=== PATIENT | female | born 1970 | race Caucasian/White ===

== ENCOUNTER → 2016-12-17 | Outpatient (CLI) | payer OTHER ==
[~2016-12-17] MED LIST: ALBUAER2 INH; EPP3/2 IM; TYLOTC500 PO
--- NOTE | 2016-12-17 19:40 | DIAGNOSTIC IMAGING REPORT ---
MRI OF THE CERVICAL SPINE WITHOUT IV CONTRAST CLINICAL HISTORY: Cervical radiculopathy. COMPARISON STUDY: Radiographs of the cervical spine dated 02/04/2016. MRI of the cervical spine dated 11/05/2011. TECHNIQUE: MRI of the cervical spine was performed utilizing various T1 and T2-weighted sequences in the axial and sagittal planes. IV contrast was not administered for this examination. FINDINGS: Cervical spine: Vertebral body height and alignment are maintained throughout the cervical spine. The atlantodental articulation appears maintained. There is straightening of the cervical lordosis. The spinous processes appear intact. No destructive bony lesion is seen. Degenerative endplate edema is noted at C5-C6 and C6-C7. Small anterior osteophytes are present in the lower cervical spine. Intervertebral discs: There is degenerative disc desiccation throughout the cervical spine. Moderate loss of height is present at C5-C6 and C6-C7. Spinal cord: The cervical spinal cord is normal in morphology and signal intensity. C2-C3: Unremarkable. C3-C4: A posterior disc osteophyte complex is eccentric to the left. The central canal is widely patent. Uncovertebral and facet arthropathy cause moderate left and minimal right neural foraminal stenosis. C4-C5: A posterior disc osteophyte complex minimally effaces the ventral subarachnoid space. Uncovertebral and facet arthropathy cause [id number] left greater than right neural foraminal stenosis. C5-C6: A posterior disc osteophyte complex eccentric to the left effaces the ventral cord. Uncovertebral and facet arthropathy cause severe left and moderate right neural foraminal stenosis. C6-C7: A posterior disc osteophyte complex abuts the ventral cord. Uncovertebral and facet arthropathy cause severe right greater than left neural foraminal stenosis. C7-T1: Unremarkable. Soft tissues: The prevertebral and paraspinous soft tissues are within normal limits. Brain parenchyma: Partially imaged brain parenchyma at the skull base is within normal limits. IMPRESSION: 1. Cervical spondylosis as detailed above, greatest at C5-C6 and C6-C7. See discussion for detailed [id number] analysis. 2. The cervical spinal cord is normal in morphology and signal intensity. 3. Degenerative disc disease with endplate edema at C5-C6 and C6-C7 as above. Dictated: 12/17/2016 7:30 PM Transcribed: 12/17/2016 7:39 PM Levi Electronically signed by: Lan Shipman M.D. 12/17/2016 7:40 PM Dictated Date/Time: 12/17/2016 7:30 PM
--- NOTE | 2016-12-17 20:15 | DIAGNOSTIC IMAGING REPORT ---
MRI OF THE LUMBAR SPINE WITHOUT IV CONTRAST CLINICAL HISTORY: Chronic low back pain. Right lower extremity radiculopathy. COMPARISON STUDY: Radiographs of the lumbar spine dated 02/04/2016 TECHNIQUE: MRI of the lumbar spine is performed utilizing various T1 and T2-weighted sequences in the axial and sagittal planes. IV contrast was not administered for this examination. Orthopedic hardware degrades assessment of the lower lumbar spine. FINDINGS: Lumbar spine: Vertebral body height and alignment are maintained throughout the lumbar spine. Normal marrow signal intensity is preserved throughout the visualized bony structures. Mild lumbar dextrocurvature centered at L3. The transverse and spinous processes appear intact. No destructive osseous lesion is seen. There is no evidence of spondylolysis. Intervertebral discs: Findings suggest previous discectomy at L4-L5 and L5-S1. Degenerative disc desiccation is seen in the remaining lumbar levels. There is no significant loss of height. Spinal cord: Partially imaged spinal cord is normal in morphology and signal intensity. The conus medullaris terminates at the level of L1. The nerve roots of the cauda equina are normal in morphology. L1-L2: Unremarkable. L2-L3: There is minimal disc bulge of no consequence. The central canal and neural foramina are patent. Mild facet arthropathy is of no consequence. L3-L4: There is broad-based posterior disc bulge with annular fissure, slightly eccentric to the right. In conjunction with hypertrophy of the ligamentum flavum, this contributes to minimal acquired compromise of the central canal with a minimum AP diameter of 8.5 mm. There is bilateral subarticular stenosis. There may be impingement of the exiting right L3 nerve root and the transiting right-sided nerve roots. Facet arthropathy causes mild left neural foraminal stenosis. L4-L5: The central canal and neural foramina are patent. L5-S1: The central canal and neural foramina are patent. Sacrum: Partially imaged sacrum is normal in morphology and signal intensity. Soft tissues: The paraspinous soft tissues are normal in appearance. The partially imaged retroperitoneal structures are grossly normal but incompletely assessed. Cholelithiasis is incidentally noted. IMPRESSION: 1. Lumbosacral spondylosis as detailed above. See discussion for detailed thnie-[id number] analysis. 2. A disc bulge at L4-L5 eccentric to the right may impinge upon the exiting right L3 as well as the transiting right-sided nerve roots. 3. Postoperative change from discectomy is present at L4-L5 and L5-S1. 4. No destructive bony process is seen. 5. Cholelithiasis. Dictated: 12/17/2016 7:40 PM Transcribed: 12/17/2016 8:14 PM LINA_[email or web address] Electronically signed by: Lan Shipman M.D. 12/17/2016 8:15 PM Dictated Date/Time: 12/17/2016 7:40 PM
== END | disposition home or self-care (01) ==
LOC: C.MRI 17:58
PROVIDERS: ATTEND Neurological Surgery
DX: M50.122 Cervical disc disorder at C5-C6 level with radiculopathy (principal); M50.123 Cervical disc disorder at C6-C7 level with radiculopathy; M47.22 Other spondylosis with radiculopathy, cervical region; M47.27 Other spondylosis with radiculopathy, lumbosacral region; M51.16 Intervertebral disc disorders with radiculopathy, lumbar region; K80.20 Calculus of gallbladder without cholecystitis without obstruction; Z98.890 Other specified postprocedural states

== ENCOUNTER 2023-04-16 07:07 | Inpatient (IN) ==
[2023-04-16] MEDS ORDERED: KETOROLAC TROMETHAMINE 15 MG/ML VIAL IV STA (07:43)
[2023-04-16] MEDS ORDERED: SODIUM CHLORIDE 0.9% 1000ML 1,000 ML IV STA (07:43)
[2023-04-16] MEDS ORDERED: ACETAMINOPHEN 1,000 MG/100 ML VIAL IV STA (07:57)
[2023-04-16 07:59] LABS: Hematocrit (blood only) 38.4 % (37.0-47.0); Hemoglobin 12.8 g/dl (12.0-16.0); Mean Corpuscular Hemoglobin 27.4 pg (25.0-34.0); Mean Corpuscular Hgb Conc 33.3 g/dL (32.0-36.0); Mean Corpuscular Volume 82.1 fL (80.0-100.0); Mean Platelet Volume 10.1 fL (9.4-12.4); Platelet Count 325 K/uL (130-400); RDW Coefficient of Variation 14.8 % (11.5-14.5); RDW Standard Deviation 44.2 fL (36.4-46.3); Red Blood Count 4.68 M/uL (4.20-5.40); White Blood Count 23.93 K/ul (4.8-10.8)
[2023-04-16 08:02] LABS: Appearance Urine Clear (Clear); Blood Urine 2+ (Negative); Color Urine Dark Yellow; Epithelial Cell Urine Auto >30 /lpf (0-5); Glucose Urine UA Trace (Negative); Ketones Urine Trace (Negative); Leukocyte Esterase Urine Negative (Negative); Nitrite Urine Negative (Negative); Protein Urine 1+ (Negative); Specific Gravity Urine 1.035 (1.000-1.030); Urobilinogen Urine Negative (Negative); pH Urine 5.5 (4.5-7.5)
[2023-04-16 08:11] LABS: Albumin Globulin Ratio 1.3 (0.9-2); BUN Creatinine Ratio 17.1 (10-20); Bilirubin,Total 0.6 mg/dl (0.2-1.0); Calcium 9.4 mg/dl (8.6-10.3); Creatinine Clr Calc Pharmacy 73.9 ml/min; Est GFR (African American) 103.8 ml/min; Est GFR (Non-African American) 89.6 ml/min; Globulin 3.1 gm/dl (2.5-4.0); Potassium 3.5 mmol/L (3.5-5.1); Total Protein 7.1 gm/dl (6.0-8.3)
[2023-04-16 08:18] LABS: Troponin I High Sensitivity 3.2 pg/ml (0-14)
[2023-04-16 08:22] LABS: Basophils # (auto) 0.05 K/uL (0-0.2); Basophils % (auto) 0.2 %; Eosinophils # (auto) 0.01 K/uL (0-0.50); Immature Granulocytes # (auto) 0.14 K/uL (0.01-0.20); Immature Granulocytes % (auto) 0.6 %; Lymphocytes # (auto) 0.55 K/uL (1.2-3.4); Lymphocytes % (auto) 2.3 %; Monocytes # (auto) 0.91 K/uL (0.11-0.59); Monocytes % (auto) 3.8 %; Neutrophils # (auto) 22.27 K/uL (1.40-6.50); Neutrophils % (auto) 93.1 %
[2023-04-16 08:27] LABS: Bilirubin Urine 1+ (Negative)
--- NOTE | 2023-04-16 08:27 | Emergency Department Note ---
Impression & Plan Perforated viscus, Pneumoperitoneum, Abdominal pain ED Provider Note CHIEF COMPLAINT: Abdominal pain, back pain HISTORY OF PRESENT ILLNESS: This 52-year-old patient presents to the emergency d [facility] via ambulance for evaluation of abdominal pain and back pain. Patient states that symptoms have been ongoing for 2 days. She states the pain significantly worsened overnight and she called the ambulance. She states pain began when she was reaching up to turn off her air conditioner. She states that she felt a popping sensation in her abdomen. Since that time, the pain has been progressively worsening and spreading to her back. She has been taking Tylenol, ibuprofen, and oxycodone without significant improvement. She states she did have a very large bowel movement yesterday which was somewhat unusual for her. No fever. No nausea or vomiting. No dysuria, urinary frequency, urinary hesitancy. No abnormal vaginal bleeding or discharge. No chest pain or shortness of breath. Patient is unable to localize the pain. She notes it is "everywhere". She states she cannot roll or sit due to the severe pain. REVIEW OF SYSTEMS: A 10 system review of systems was performed with positives and pertinent negatives listed in the history of present illness. All other systems were reviewed and are negative. ALLERGIES: Cyclobenzaprine PHYSICAL EXAM: VITALS: Vitals are noted on the nurse's note and reviewed by myself. Vital signs stable. GENERAL: This is a 52-year-old female, in no acute distress, nondiaphoretic, well-developed well-nourished. SKIN: The skin was without rashes, erythema, edema, or bruising. There is no tenting of the skin. Capillary refill less than 2 seconds. HEAD: Normocephalic atraumatic. EARS: External auditory canals clear, tympanic membranes pearly cantor without erythema or effusion bilaterally. EYES: Pupils equal round and reactive to light and accommodation. Conjunctivae without injection, sclerae without icterus. Extraocular movements intact. NOSE: Patent, turbinates without inflammation or discharge. No sinus tenderness. MOUTH: Mucous membranes moist. Tonsils are not enlarged. Pharynx without erythema or exudate. Uvula midline. Airway patent. Tongue does not deviate. NECK: Supple without nuchal rigidity. No lymphadenopathy. No thyromegaly. Cervical spine is nontender. No JVD. HEART: Regular rate and rhythm without murmurs gallops or rubs. LUNGS: Clear to auscultation bilaterally without wheezes, rales or rhonchi. No retractions or accessory muscle use. ABDOMEN: Positive bowel sounds x 4. Abdomen is distended. It is diffusely tender. No specific masses or organomegaly. Mark sign negative. Diffuse guarding. There is CVA tenderness bilaterally MUSCULOSKELETAL: No muscle atrophy, erythema, or edema noted. Full range of motion without joint tenderness in all extremities. Exquisite tenderness to palpation of the entire back normal gait. Strength 5/5 throughout. NEURO: Patient was alert and oriented to person place and time. No focal neurological deficits. EKG: Normal sinus rhythm with a ventricular rate of [address] elevation or depression. No T wave inversion. No previous EKGs available for comparison An order was placed for continuous playground monitor. The monitor showed a normal sinus at a ventricular rate of 87 bpm, per my interpretation. EMERGENCY DEPARTMENT COURSE: The patient was seen and evaluated as above. IV access obtained, labs drawn. Patient was medicated with acetaminophen and IV fluids. CT imaging was performed and reviewed by myself and radiologist as noted. Labs were reviewed. Patient does have a leukocytosis of almost 24,000. No significant anemia or thrombocytopenia. Renal, hepatic function and electrolytes without significant abnormality. Lactic acid 1.3. Troponin negative. Lipase mildly elevated at 101. Urinalysis appears to be contaminated specimen. Patient was medicated with IV morphine and Zofran. COVID-19 testing is negative. Given the pneumoperitoneum and concern for bowel perforation, I did consult with general surgery. General surgery was paged regarding CT findings of pneumoperitoneum and perforated bowel. Called back by OR nurse. Notified surgeon of the case and advised they will call me back when they have completed their current case. The patient was updated and continued to complain of pain. She was medicated with IV Dilaudid. The patient was seen by general surgery. Based on Dr. Balderrama's note, it appears that they will be taking her to the operating room for ex lap. Please see general surgery dictation regarding ongoing management care of this patient Etiologies such as appendicitis, diverticulitis, obstruction, inflammatory bowel disease, renal colic, PUD, biliary pathology, pancreatitis, mesenteric ischemia, aortic pathology, infections, genitourinary, UTI, perforated viscus, as well as others were entertained. I attest that I have personally reviewed the patient's current medication list. Patient was found to have normal blood pressure on screening and does not require follow-up. The chart was completed utilizing [employer] voice recognition software. Grammatical errors, random word insertions, pronoun errors, and incomplete sentences are an occasional consequence of this system due to software limitations, ambient noise, and hardware issues. Any formal questions or concerns about the content, text, or information contained within the body of this dictation should be directly addressed to the provider for clarification. Past Med/Surg History Medical History Chronic low back pain Surgical History H/O lumbosacral spine surgery History of hysterectomy History of repair of anterior cruciate ligament of right knee Social History Smoking Status: Current every day smoker Preferred Language: Portuguese Feels Safe at Home: Yes Allergies Allergies Allergy/AdvReac Type Severity Reaction Status Date / Time bee venom protein (honey bee) Allergy Unknown BREATHING Verified 11/01/19 23:09 DIIFICULTY, SWELLING cyclobenzaprine AdvReac Unknown drops her Verified 11/01/19 23:09 bp Home Meds Home Medications Medication Instructions Recorded Confirmed albuterol sulfate 2.5 mg/3 mL 2.5 mg inhalation UD PRN Shortness 04/22/20 04/16/23 (0.083 %) solution for nebulization Of Breath Or Wheezing epinephrine 0.3 mg/0.3 mL 0.3 ml subcut UD PRN Anaphylaxis 04/22/20 04/16/23 injection, auto-injector Previous Rx's Medication Instructions Recorded oxycodone-acetaminophen 5 mg-325 1 tab PO Q6H PRN pain #14 tabs 04/23/ mg tablet (Percocet) Results & Data (ED) Vital Signs Vital Signs - 24 hr 04/16/23 07:21 04/16/23 07:43 04/16/23 08:16 Temperature 36.9 C Temperature Source Oral Pulse Rate 105 H 95 H 91 H Pulse Rate from SpO2 Sensor Pulse Rhythm Regular Respiratory Rate 16 Respiratory Effort / Characteristics Non-Labored Spontaneous Respiratory Depth Normal Respiratory Pattern Regular Blood Pressure 120/97 Blood Pressure Mean 104 Pulse Oximetry 99 100 Oxygen Delivery Method Room Air Room Air Sepsis Recent Fever Within 48 Hours No Sepsis New/Unexplained Change in Mental Status No Sepsis Action Taken by Nursing No Action Required 04/16/23 08:37 04/16/23 10:00 04/16/23 11:00 Temperature Temperature Source Pulse Rate 95 H 93 H 93 H Pulse Rate from SpO2 Sensor 91 H Pulse Rhythm Respiratory Rate 22 18 18 Respiratory Effort / Characteristics Respiratory Depth Respiratory Pattern Blood Pressure 145/88 H 134/93 98/71 L Blood Pressure Mean 107 106 80 Pulse Oximetry 98 98 97 Oxygen Delivery Method Sepsis Recent Fever Within 48 Hours Sepsis New/Unexplained Change in Mental Status Sepsis Action Taken by Nursing 04/16/23 11:25 04/16/23 11:31 Temperature 36.8 C Temperature Source Oral Pulse Rate 93 H Pulse Rate from SpO2 Sensor Pulse Rhythm Respiratory Rate 18 Respiratory Effort / Characteristics Respiratory Depth Respiratory Pattern Blood Pressure 98/71 L Blood Pressure Mean Pulse Oximetry 97 Oxygen Delivery Method Room Air Sepsis Recent Fever Within 48 Hours Sepsis New/Unexplained Change in Mental Status Sepsis Action Taken by Nursing Laboratory Data 04/16/23 07:20 04/16/23 07:20 Lab Results 04/16/23 04/16/23 04/16/23 Range/Units 07:20 07:20 07:20 WBC 23.93 H (4.8-10.8) K/ul RBC 4.68 (4.20-5.40) M/uL Hgb 12.8 (12.0-16.0) g/dl Hct 38.4 (37.0-47.0) % MCV 82.1 (80.0-100.0) fL MCH 27.4 (25.0-34.0) pg MCHC 33.3 (32.0-36.0) g/dL RDW Std Deviation 44.2 (36.4-46.3) fL RDW Coeff of Elvin 14.8 H (11.5-14.5) % Plt Count 325 (130-400) K/uL MPV 10.1 (9.4-12.4) fL Immature Gran % (Auto) 0.6 % Neut % (Auto) 93.1 % Lymph % (Auto) 2.3 % Pepin % (Auto) 3.8 % Eos % (Auto) 0.0 % Baso % (Auto) 0.2 % Neut # (Auto) 22.27 H (1.40-6.50) K/uL Lymph # (Auto) 0.55 L (1.2-3.4) K/uL Pepin # (Auto) 0.91 H (0.11-0.59) K/uL Eos # (Auto) 0.01 (0-0.50) K/uL Baso # (Auto) 0.05 (0-0.2) K/uL Immature Gran # (Auto) 0.14 (0.01-0.20) K/uL PT 11.1 (9.0-12.0) Seconds INR 1.0 (0.9-1.1) Sodium 138 (136-145) mmol/L Potassium 3.5 (3.5-5.1) mmol/L Chloride 108 H (98-107) mmol/L Carbon Dioxide 24 (21-32) mmol/L Anion Gap 6 (3-11) BUN 13 (6-23) mg/dl Creatinine 0.76 (0.6-1.2) mg/dl Est Cr Clr Drug Dosing 73.9 ml/min Est GFR ( Amer) 103.8 ml/min Est GFR (Non-Af Amer) 89.6 ml/min BUN/Creatinine Ratio 17.1 (10-20) Glucose 143 H (70-99(Fasting)) mg/dl Lactate (0.4-2.0) mmol/L Calcium 9.4 (8.6-10.3) mg/dl Total Bilirubin 0.6 (0.2-1.0) mg/dl AST 11 L (13-39) U/L ALT 11 (7-52) U/L Alkaline Phosphatase 85 (34-104) U/L Troponin I High Sens 3.2 (0-14) pg/ml Total Protein 7.1 (6.0-8.3) gm/dl Albumin 4.0 (3.4-5.0) gm/dl Globulin 3.1 (2.5-4.0) gm/dl Albumin/Globulin Ratio 1.3 (0.9-2) Lipase 101 H (11-82) U/L Urine Color Urine Appearance (Clear) Urine pH (4.5-7.5) Ur Specific [place] (1.000-1.030) Urine Protein (Negative) Urine Glucose (UA) (Negative) Urine Ketones (Negative) Urine Blood (Negative) Urine Nitrite (Negative) Urine Bilirubin (Negative) Urine Urobilinogen (Negative) Ur Leukocyte Esterase (Negative) Urine WBC (Auto) (0-5) /hpf Urine RBC (Auto) (0-4) /hpf U Hyaline Cast (Auto) (0-5) /lpf U Epithel Cells (Auto) (0-5) /lpf Urine Bacteria (Auto) (Negative) Ur Renal Epithelial Cell Granular Casts (0) /lpf WBC Casts (0) /lpf SARS-CoV-2, RNA, NAAT (NEGATIVE) 04/16/23 04/16/23 04/16/23 Range/Units 07:50 09:04 09:33 WBC (4.8-10.8) K/ul RBC (4.20-5.40) M/uL Hgb (12.0-16.0) g/dl Hct (37.0-47.0) % MCV (80.0-100.0) fL MCH (25.0-34.0) pg MCHC (32.0-36.0) g/dL RDW Std Deviation (36.4-46.3) fL RDW Coeff of Elvin (11.5-14.5) % Plt Count (130-400) K/uL MPV (9.4-12.4) fL Immature Gran % (Auto) % Neut % (Auto) % Lymph % (Auto) % Pepin % (Auto) % Eos % (Auto) % Baso % (Auto) % Neut # (Auto) (1.40-6.50) K/uL Lymph # (Auto) (1.2-3.4) K/uL Pepin # (Auto) (0.11-0.59) K/uL Eos # (Auto) (0-0.50) K/uL Baso # (Auto) (0-0.2) K/uL Immature Gran # (Auto) (0.01-0.20) K/uL PT (9.0-12.0) Seconds INR (0.9-1.1) Sodium (136-145) mmol/L Potassium (3.5-5.1) mmol/L Chloride (98-107) mmol/L Carbon Dioxide (21-32) mmol/L Anion Gap (3-11) BUN (6-23) mg/dl Creatinine (0.6-1.2) mg/dl Est Cr Clr Drug Dosing ml/min Est GFR ( Amer) ml/min Est GFR (Non-Af Amer) ml/min BUN/Creatinine Ratio (10-20) Glucose (70-99(Fasting)) mg/dl Lactate 1.3 (0.4-2.0) mmol/L Calcium (8.6-10.3) mg/dl Total Bilirubin (0.2-1.0) mg/dl AST (13-39) U/L ALT (7-52) U/L Alkaline Phosphatase (34-104) U/L Troponin I High Sens (0-14) pg/ml Total Protein (6.0-8.3) gm/dl Albumin (3.4-5.0) gm/dl Globulin (2.5-4.0) gm/dl Albumin/Globulin Ratio (0.9-2) Lipase (11-82) U/L Urine Color Dark Yellow Urine Appearance Clear (Clear) Urine pH 5.5 (4.5-7.5) Ur Specific [place] 1.035 H (1.000-1.030) Urine Protein 1+ H (Negative) Urine Glucose (UA) Trace H (Negative) Urine Ketones Trace H (Negative) Urine Blood 2+ H (Negative) Urine Nitrite Negative (Negative) Urine Bilirubin 1+ H (Negative) Urine Urobilinogen Negative (Negative) Ur Leukocyte Esterase Negative (Negative) Urine WBC (Auto) 5-10 H (0-5) /hpf Urine RBC (Auto) 0-4 (0-4) /hpf U Hyaline Cast (Auto) 1-5 (0-5) /lpf U Epithel Cells (Auto) >30 H (0-5) /lpf Urine Bacteria (Auto) 1+ H (Negative) Ur Renal Epithelial Cell Not Reportable Granular Casts 5-10 H (0) /lpf WBC Casts 1-5 H (0) /lpf SARS-CoV-2, RNA, NAAT NEGATIVE (NEGATIVE) Administered Medications Discontinued Medications Hydromorphone HCl (Hydromorphone Inj 0.5 Mg/0.5 Ml Syr) 0.5 mg IV NOW STA Stop: 04/16/23 09:55 Last Admin: 04/16/23 09:58 Dose: 0.5 mg Documented By: PHILL Sodium Chloride (Nss 1000ml) 1,000 mls @ 999 mls/hr IV .Q1H1M STA Stop: 04/16/23 08:43 Last Infusion: 04/16/23 10:31 Dose: 0 mls/hr Documented By: Admin: 04/16/23 08:00 Dose: 999 mls/hr Documented By: MARCELLA Acetaminophen (Ofirmev) 1,000 mg in 100 mls @ 400 mls/hr IV NOW STA Stop: 04/16/23 08:11 Last Infusion: 04/16/23 10:31 Dose: 0 mls/hr Documented By: Admin: 04/16/23 08:01 Dose: 400 mls/hr Documented By: MARCELLA Piperacillin Sod/Tazobactam Sod (Zosyn) 4.5 gm in 120 mls @ 240 mls/hr IV NOW ONE Stop: 04/16/23 09:42 Last Infusion: 04/16/23 10:31 Dose: 0 mls/hr Documented By: Admin: 04/16/23 09:35 Dose: 240 mls/hr Documented By: MARCELLA Ioversol (Optiray 320 100ml) 86 ml IV ONCE ONE Stop: 04/16/23 08:45 Last Admin: 04/16/23 08:30 Dose: 86 ml Documented By: VERO Ketorolac Tromethamine (Ketorolac Tromethamine 15 Mg/Ml Vial) 10 mg IV NOW STA Stop: 04/16/23 07:44 Last Admin: 04/16/23 07:57 Dose: Not Given Documented By: MARCELLA Morphine Sulfate (Morphine Sulfate 4 Mg/Ml 1 Ml Carp\\Vial) 4 mg IV NOW STA Stop: 04/16/23 09:11 Last Admin: 04/16/23 09:17 Dose: 4 mg Documented By: MARCELLA Ondansetron HCl (Ondansetron Inj 2 Mg/Ml 2 Ml Vial) 4 mg IV NOW STA Stop: 04/16/23 09:11 Last Admin: 04/16/23 09:18 Dose: 4 mg Documented By: MARCELLA Imaging Data Radiologist's Impression: Abdomen/Pelvis CT 04/16/23 07:43 CT abd pelvis IV con only CLINICAL HISTORY: generalized abdominal/back pain TECHNIQUE: Helical axial images of the abdomen and pelvis were obtained and displayed. Automated dose lowering techniques and/or adjustment according to patient size were utilized for this exam. This exam was performed with intravenous contrast. CT DOSE: 641.81 mGy.cm COMPARISON: None available at the time of this dictation. FINDINGS: Lower chest: Bibasilar atelectasis versus scarring is seen. Liver: Unremarkable. No focal lesions are seen. Gallbladder and biliary tree: No calcified gallstones. Normal caliber wall. No intra- or extrahepatic biliary ductal dilation. Pancreas: Unremarkable, no focal lesions. Spleen: Unremarkable. Adrenals: Unremarkable. Kidneys and ureters: Unremarkable. Bladder: Limited evaluation due to underdistention. Bladder wall thickening is seen. Reproductive organs: Patient is status post hysterectomy. Bowel: The appendix is normal. Lymph nodes Retroperitoneal: Unremarkable. Pelvic: Unremarkable. Mesenteric: Unremarkable. Peritoneum: Moderate volume pneumoperitoneum and a small amount of free fluid is seen. Vessels: Unremarkable. Abdominal wall: Unremarkable. Bones: Fixation hardware spans L4-S1. IMPRESSION: 1. Pneumoperitoneum is seen compatible with likely bowel perforation 2. Bladder wall thickening may be reactive, less likely UTI. ACT 112: Negative or not required by law. Electronically signed by: Meng Quiñones M.D. 04/16/2023 9:09 AM Discharge Plan Visit Data Chief Complaint: Abdominal Pain Stated Complaint: ABDOMINAL PAIN ED Provider: Michelet Balderas ED Midlevel Provider: Diamond Frankel Discharge Problem: Perforated viscus, Pneumoperitoneum, Abdominal pain Patient Disposition: Being Evaluated by Surgeon Discharge Instructions Interventions: ED Discharge Assessment Last Done: 04/16/23 11:25
[2023-04-16 08:30] LABS: Prothrombin Time 11.1 Seconds (9.0-12.0)
[2023-04-16] MEDS ORDERED: OPTIRAY 320 100ml IV ONE (08:44)
[2023-04-16 09:03] LABS: RBC Urine Automated 0-4 /hpf (0-4)
[2023-04-16 09:04] LABS: Bacteria Urine Automated 1+ (Negative)
[2023-04-16] MEDS ORDERED: ONDANSETRON INJ 2 MG/ML 2 ML VIAL IV STA (09:10)
[2023-04-16] MEDS ORDERED: MoRPHine SULFATE 4 MG/ML 1 ML CARP\\VIAL IV STA (09:10)
--- NOTE | 2023-04-16 09:10 | CT Scan Report ---
CT abd pelvis IV con only CLINICAL HISTORY: generalized abdominal/back pain TECHNIQUE: Helical axial images of the abdomen and pelvis were obtained and displayed. Automated dose lowering techniques and/or adjustment according to patient size were utilized for this exam. This e xam was performed with intravenous contrast. CT DOSE: 641.81 mGy.cm COMPARISON: None available at the time of this dictation. FINDINGS: Lower chest: Bibasilar atelectasis versus scarring is seen. Liver: Unremarkable. No focal lesions are seen. Gallbladder and biliary tree: No calcified gallstones. Normal caliber wall. No intra- or extrahepatic biliary ductal dilation. Pancreas: Unremarkable, no focal lesions. Spleen: Unremarkable. Adrenals: Unremarkable. Kidneys and ureters: Unremarkable. Bladder: Limited evaluation due to underdistention. Bladder wall thickening is seen. Reproductive organs: Patient is status post hysterectomy. Bowel: The appendix is normal. Lymph nodes Retroperitoneal: Unremarkable. Pelvic: Unremarkable. Mesenteric: Unremarkable. Peritoneum: Moderate volume pneumoperitoneum and a small amount of free fluid is seen. Vessels: Unremarkable. Abdominal wall: Unremarkable. Bones: Fixation hardware spans L4-S1. IMPRESSION: 1. Pneumoperitoneum is seen compatible with likely bowel perforation 2. Bladder wall thickening may be reactive, less likely UTI. ACT 112: Negative or not required by law. Electronically signed by: Meng Quiñones M.D. 04/16/2023 9:09 AM
[2023-04-16] MEDS ORDERED: PIPERACILLIN/TAZOBACTAM 4.5 GM/120 ML BAG IV ONE (09:13)
[2023-04-16] MEDS ORDERED: HYDROmorphone INJ 0.5 MG/0.5 ML SYR IV STA (09:54)
--- NOTE | 2023-04-16 11:17 | History & Physical Report ---
Date of Service April 16, 2023 Assessment & Plan (1) Perforated viscus: Plan: Etiology unknown clear although suspect it is in the lower abdomen likely colon. Because of it being 2 days we will proceed directly to an open exploratory laparotomy possible bowel resection surgery as needed. We discussed potential risks including bleeding, infection, injury to another organ such as ureter bladder bowel etc., DVT, PE, MA, CVA etc. Following our discussion I answered all of her questions. She agrees and has signed the consent. Proceed to the operating room for expiratory laparotomy GRZEGORZ. History of Present Illness Primary Care Provider: NO PCP 52-year-old female who had abdominal pain starting 2 days ago. She felt a pop in her abdomen and has had pain ever since. It is progressed over the last 2 days until finally she presented to emergency room. She is 24,000 white blood cell count and CT scan showing moderate pneumoperitoneum Allergies Allergy/AdvReac Type Severity Reaction Status Date / Time bee venom protein (honey bee) Allergy Unknown BREATHING Verified 11/01/19 23:09 DIIFICULTY, SWELLING cyclobenzaprine AdvReac Unknown drops her Verified 11/01/19 23:09 bp Home Medications Medication Instructions Recorded Confirmed Type albuterol sulfate 2.5 mg/3 mL 2.5 mg inhalation UD PRN Shortness 04/22/20 04/16/23 History (0.083 %) solution for nebulization Of Breath Or Wheezing epinephrine 0.3 mg/0.3 mL 0.3 ml subcut UD PRN Anaphylaxis 04/22/20 04/16/23 History injection, auto-injector oxycodone-acetaminophen 5 mg-325 1 tab PO Q6H PRN pain #14 tabs 04/23/20 04/16/23 Rx mg tablet (Percocet) Past Med/Surg History Surgical History H/O lumbosacral spine surgery History of hysterectomy History of repair of anterior cruciate ligament of right knee Social History Smoking Status: Current every day smoker Preferred Language: Estonian Feels Safe at Home: Yes Review of Systems All systems reviewed & are unremarkable except as noted in HPI & below Physical Exam Constitutional: WD/WN, vitals as above no acute distress and not ill appearing Eyes: PERRL, conjunctivae normal, anicteric sclerae EOM intact bilaterally ENMT: external ear and nose normal, oropharynx normal Ears: no hearing impairment Neck: trachea midline, no thyromegaly Respiratory: Slightly labored breathing with expiratory wheezes Cardiovascular: Rate/Rhythm: regular rate and regular rhythm Gastrointestinal (Abdomen): Soft. Lower abdominal tenderness with peritonitis Skin: no rashes, warm and dry Psychiatric: Orientation: alert, oriented x 3 and cooperative Results & Data Vital Signs (Past 12 Hours) Vital Signs Temp Pulse Resp BP Pulse Ox O2 Del Method 04/16/23 11:00 93 H 18 98/71 L 97 04/16/23 10:00 93 H 18 134/93 98 04/16/23 08:37 95 H 22 145/88 H 98 04/16/23 08:16 91 H 100 Room Air 04/16/23 07:43 95 H 04/16/23 07:21 36.9 C 105 H 16 120/97 99 Room Air
[2023-04-16] MEDS ORDERED: ePHEDrine sulfate 50 MG/ML AMP IV PRN (12:37)
[2023-04-16] MEDS ORDERED: ONDANSETRON INJ 2 MG/ML 2 ML VIAL IV PRN ×2 (12:37→16:04)
[2023-04-16] MEDS ORDERED: PROMETHAZINE HCL 6.25 MG in SODIUM CHLORIDE 0.9% 50 ML IV PRN (12:37)
[2023-04-16] MEDS ORDERED: ATROPINE SULFATE 0.1 MG/ML 10ML SYR IV PRN (12:37)
--- NOTE | 2023-04-16 12:39 | Anesthesiology Consultation ---
Date of Service April 16, 2023 Assessment & Plan (1) Encounter for pre-operative examination: Chart Review Chart Review: Acceptable Risk for Surgery and Patient NOT seen in Pre Admission Testing Consults Requested none History Surgery Operation Date: 04/16/23 07:40 Proposed Procedures p Exploratory Laparotomy, Possible Bowel Resection - Marcellus Balderrama, Height/Weight Height: 5 ft 4 in Weight: 55.9 kg Allergies Allergy/AdvReac Type Severity Reaction Status Date / Time bee venom protein (honey bee) Allergy Unknown BREATHING Verified 11/01/19 23:09 DIIFICULTY, SWELLING cyclobenzaprine AdvReac Unknown drops her Verified 11/01/19 23:09 bp Medications Home Medications Medication Instructions Recorded Confirmed Last Taken albuterol sulfate 2.5 mg/3 mL 2.5 mg inhalation UD PRN Shortness 04/22/20 04/16/23 Unknown (0.083 %) solution for nebulization Of Breath Or Wheezing epinephrine 0.3 mg/0.3 mL 0.3 ml subcut UD PRN Anaphylaxis 04/22/20 04/16/23 Unknown injection, auto-injector oxycodone-acetaminophen 5 mg-325 1 tab PO Q6H PRN pain #14 tabs 04/23/20 04/16/23 Unknown mg tablet (Percocet) NPO Date Last Intake of Fluids: 04/16/23 Time Last Intake of Fluids: 04:00 Date Last Intake of Solids: 04/16/23 Time Last Intake of Solids: 03:00 Past Medical History Medical History (Updated 04/16/23 @ 12:39 by Marvin Francois MD) Chronic low back pain Chronic thoracic spine pain Encounter for pre-operative examination Pneumoperitoneum asthma, smoking Exercise / Class Metabolic Activity II 4-5 Yardwork/Stairs/Walk up hill Past Surgical History Surgical History H/O lumbosacral spine surgery History of hysterectomy History of repair of anterior cruciate ligament of right knee Social History Smoking Status: Current every day smoker Physical Exam Vital Signs Last Vital Signs Temp 36.8 C 04/16/23 11:31 Pulse 93 H 04/16/23 11:25 Resp 18 04/16/23 11:25 BP 98/71 L 04/16/23 11:25 Pulse Ox 97 04/16/23 11:25 O2 Del Method Room Air 04/16/23 11:25 Testing Laboratory Results 04/16/23 07:20 04/16/23 07:20 PT 11.1 Seconds (9.0-12.0) 04/16/23 07:20 INR 1.0 (0.9-1.1) 04/16/23 07:20 Urine Color Dark Yellow 04/16/23 07:50 Urine Appearance Clear (Clear) 04/16/23 07:50 Urine pH 5.5 (4.5-7.5) 04/16/23 07:50 Ur Specific [place] 1.035 (1.000-1.030) H 04/16/23 07:50 Urine Protein 1+ (Negative) H 04/16/23 07:50 Urine Glucose (UA) Trace (Negative) H 04/16/23 07:50 Urine Ketones Trace (Negative) H 04/16/23 07:50 Urine Nitrite Negative (Negative) 04/16/23 07:50 Ur Leukocyte Esterase Negative (Negative) 04/16/23 07:50 Urine WBC (Auto) 5-10 /hpf (0-5) H 04/16/23 07:50 Urine RBC (Auto) 0-4 /hpf (0-4) 04/16/23 07:50 U Hyaline Cast (Auto) 1-5 /lpf (0-5) 04/16/23 07:50 U Epithel Cells (Auto) >30 /lpf (0-5) H 04/16/23 07:50 Urine Bacteria (Auto) 1+ (Negative) H 04/16/23 07:50 Electrocardiogram Date: 04/16/23 Findings: + NSR @ (97) Normal sinus rhythm Right atrial enlargement Borderline ECG No previous ECGs available
[2023-04-16] MEDS ORDERED: fentaNYL citrate PF 100 MCG/2 ML VIAL IV STA (12:45)
[2023-04-16] MEDS ORDERED: fentaNYL citrate PF 100 MCG/2 ML VIAL ONE (13:03)
[2023-04-16] MEDS ORDERED: MIDAZOLAM HCL 1 MG/ML 2ML VIAL ONE (13:03)
[2023-04-16] MEDS ORDERED: TISSEEL FIBRIN SEALANT 4ML TOP ONE (14:20)
[2023-04-16] MEDS ORDERED: DEXAMETHASONE SOD INJ 4 MG/ML VIAL ONE (14:30)
[2023-04-16] MEDS ORDERED: LIDOCAINE 2% 2 ML VIAL/AMP(20MG/ML) INFIL ONE (14:30)
[2023-04-16] MEDS ORDERED: ONDANSETRON INJ 2 MG/ML 2 ML VIAL ONE (14:30)
[2023-04-16] MEDS ORDERED: PROPOFOL IV EMULSION 10 MG/ML 100 ML VIAL IV ONE (14:30)
[2023-04-16] MEDS ORDERED: ceFAZolin 330 MG/ML 1 GM VIAL ONE (14:30)
[2023-04-16] MEDS ORDERED: SUGAMMADEX SODIUM 200 MG/2 ML VIAL IV ONE (14:31)
[2023-04-16] MEDS: fentaNYL citrate PF 100 MCG/2 ML VIAL IV PRN ×4 (15:00→15:20)
--- NOTE | 2023-04-16 15:01 | Operative Report ---
PG Post Operative Report Pre & Post Diagnosis Operation Date: 04/16/23 07:40 Pre-Op Diagnosis: Perforated viscus Post-Op Diagnosis: Perforated viscus I identified the patient and participated in the time-out.: Yes Procedure Operation Date: 04/16/23 07:40 Actual Procedures p Exploratory Laparotomy, repair of perforated gastric ulcer, modified gram patch and abdominal washout(Not Applicable) - Marcellus Balderrama DO Surgeon Marcellus Balderrama DO Radiology Technician Kishor Medina 2 Estimated Blood Loss 25 Findings Consistent with Post-Op Diagnosis Specimens abdominal fluid for culture Description of Procedure After informed consent was obtained the patient was taken to the operating room and placed in supine position. After successful intubation a nasogastric tube and Gonzalez catheter were placed. The abdomen was sterilely prepped and draped in usual fashion. I began with midline incision from above the umbilicus down to the pubic symphysis. This was carried down through soft tissue using cautery. The anterior fascia was opened using cautery. Peritoneum was elevated with hemostats at the superior pole and opened with a Metzenbaum scissor. This released a large amount of air. We extended this incision to the inferior pole. There was a large amount of bilious fluid throughout the abdomen. There was no foul odor. Samples were taken and sent for Gram stain and culture. We readily encountered a perforated gastric ulcer in the antrum of the stomach anteriorly. We did evaluate the pelvis sigmoid and right colon as well as small bowel. There were no other areas of injury or perforation. We began by suctioning out all of the bilious fluid. Next I used 3-0 Monocryl to close the small ulcer with serosal and mucosal layers in simple interrupted fashion. I then oversewed this with 3-0 silk. It was then covered with Tisseel sealant followed by modified Velasquez patch with omentum which was secured to surrounding stomach using 3-0 silk. Once this was closed I verified position of the NG tube in the mid stomach. We spent the next 20 minutes thoroughly irrigating all 4 quadrants of the abdomen with several liters of warm irrigation until all the irrigant was clear. A 10 flat Latrell-Umanzor drain was placed in the right upper quadrant brought out through a separate stab incision in the left lower quadrant. It was secured to the skin using 2-0 silk. Final irrigation was performed. Again no other gross abnormalities were identified. The fascia was closed using0- looped PDS in running fashion. Soft tissue was irrigated and skin was closed using skin porfirio. Silver dressing was applied as well as gauze and tape. The patient was awakened extubated and transferred to recovery in guarded condition. I attest to the content of the Intraoperative Record and any orders documented therein. Any exceptions are noted below.
[2023-04-16] MEDS: HYDROmorphone INJ 2 MG/ML SYR/VIAL IV PRN ×2 (15:25→15:30)
--- NOTE | 2023-04-16 15:44 | Anesthesiology Progress Note ---
Date of Service April 16, 2023 Anesthesia Post Procedure Vital Signs Vital Signs: Temp Pulse Pulse Pulse Resp BP BP 04/16/23 15:40 36.7 C 86 18 126/85 04/16/23 15:30 86 14 129/87 04/16/23 15:20 90 20 146/96 H 04/16/23 15:10 90 20 151/95 H 04/16/23 15:00 88 20 150/101 H 04/16/23 14:51 36.4 C L 89 16 137/116 H 04/16/23 13:10 91 H 16 119/82 04/16/23 12:55 95 H 18 111/80 04/16/23 11:31 36.8 C 04/16/23 11:25 93 H 18 98/71 L 04/16/23 11:00 93 H 18 98/71 L 04/16/23 10:00 93 H 18 134/93 04/16/23 08:37 95 H 22 145/88 H 04/16/23 08:16 91 H 04/16/23 07:43 95 H 04/16/23 07:21 36.9 C 105 H 16 120/97 Pulse Ox O2 Del Method O2 Flow Rate 04/16/23 15:40 100 Nasal Cannula 3 04/16/23 15:30 100 Nasal Cannula 3 04/16/23 15:20 94 Room Air 04/16/23 15:10 95 Room Air 04/16/23 15:00 100 Oxymask 6 04/16/23 14:51 100 Oxymask 6 04/16/23 13:10 100 Oxymask 5 04/16/23 12:55 99 Oxymask 5 04/16/23 11:31 04/16/23 11:25 97 Room Air 04/16/23 11:00 97 04/16/23 10:00 98 04/16/23 08:37 98 04/16/23 08:16 100 Room Air 04/16/23 07:43 04/16/23 07:21 99 Room Air Pain Intensity Abdomen: Pain Intensity: 7 Transfer of Care Handoff Completed per policy Notes Mental Status: alert / awake / arousable and participated in evaluation Patient Amnestic to Procedure: Yes Nausea / Vomiting: adequately controlled Pain: adequately controlled Airway Patency, RR, SpO2: stable & adequate BP & HR: stable & adequate Hydration State: stable & adequate Anesthetic Complications: no major complications apparent and Pt Satisfied with anesthetic care
[2023-04-16] MEDS: LACTATED RINGER'S 1,000 ML IV SCH ×2 (16:00→19:10)
[2023-04-16] MEDS ORDERED: PROMETHAZINE HCL 12.5 MG in SODIUM CHLORIDE 0.9% 50 ML IV PRN (16:04)
[2023-04-16] MEDS ORDERED: MoRPHine SULFATE 2 MG/ML CARP IV PRN (16:04)
[2023-04-16] MEDS ORDERED: ALBUTEROL 0.083% NEBU SOLN 3 ML VIAL INH PRN (16:04)
[2023-04-16] MEDS: PIPERACILLIN/TAZOBACTAM 4.5 GM in DEXTROSE 5% 100 ML IV ONE ×2 (17:26→17:54)
[2023-04-16] MEDS: ACETAMINOPHEN 1,000 MG/100 ML VIAL IV SCH (17:26)
[2023-04-16] MEDS: PIPERACILLIN/TAZOBACTAM 4.5 GM in DEXTROSE 5% 100 ML IV SCH ×3 (17:27→20:36)
[2023-04-16] MEDS: MoRPHine SULFATE 4 MG/ML 1 ML CARP\\VIAL IV PRN ×2 (18:35→21:39)
[2023-04-16] MEDS: SUCRALFATE 1 GM/10 ML UDC NG SCH (20:36)
[2023-04-16] MEDS: PANTOprazole 40 MG in SYRINGE 0 ML IV SCH (20:36)
[2023-04-17] MEDS: ACETAMINOPHEN 1,000 MG/100 ML VIAL IV SCH ×3 (00:44→17:29)
[2023-04-17] MEDS: MoRPHine SULFATE 4 MG/ML 1 ML CARP\\VIAL IV PRN ×2 (00:44→07:48)
[2023-04-17] MEDS ORDERED: NICOTINE 14 MG/24 HR PATCH TD STA (01:08)
[2023-04-17] MEDS: CHLORASEPTIC 1.4% SOLN 180 ML BTL MT PRN ×2 (01:28→07:48)
[2023-04-17] MEDS: PIPERACILLIN/TAZOBACTAM 4.5 GM in DEXTROSE 5% 100 ML IV SCH ×3 (06:07→22:20)
--- NOTE | 2023-04-17 06:12 | Electrocardiogram Report ---
Test Reason : Blood Pressure : / mmHG Vent. Rate : 097 BPM Atrial Rate : 097 BPM P-R Int : 136 ms QRS Dur : 076 ms QT Int : 340 ms P-R-T Axes : 076 078 067 degrees QTc Int : 431 ms Poor data quality, interpretation may be adversely affected Normal sinus rhythm Right atrial enlargement Borderline ECG No previous ECGs available Confirmed by Kevin Perdomo ([id number]) on 04/17/2023 6:11:48 AM Referred By: REFERRED SELF Confirmed By:Kevin Perdomo
[2023-04-17 07:48] LABS: Basophils # (auto) 0.03 K/uL (0-0.2); Basophils % (auto) 0.2 %; Eosinophils # (auto) 0.01 K/uL (0-0.50); Eosinophils % (auto) 0.1 %; Hematocrit (blood only) 31.4 % (37.0-47.0); Hemoglobin 10.4 g/dl (12.0-16.0); Immature Granulocytes # (auto) 0.09 K/uL (0.01-0.20); Immature Granulocytes % (auto) 0.5 %; Lymphocytes # (auto) 1.03 K/uL (1.2-3.4); Lymphocytes % (auto) 5.3 %; Mean Corpuscular Hemoglobin 27.2 pg (25.0-34.0); Mean Corpuscular Hgb Conc 33.1 g/dL (32.0-36.0); Monocytes % (auto) 5.7 %; Neutrophils # (auto) 17.09 K/uL (1.40-6.50); Neutrophils % (auto) 88.2 %; Platelet Count 266 K/uL (130-400); RDW Coefficient of Variation 15.1 % (11.5-14.5); RDW Standard Deviation 45.1 fL (36.4-46.3); Red Blood Count 3.83 M/uL (4.20-5.40); White Blood Count 19.35 K/ul (4.8-10.8)
[2023-04-17] MEDS: LACTATED RINGER'S 1,000 ML IV SCH ×2 (07:48→17:29)
[2023-04-17] MEDS: SUCRALFATE 1 GM/10 ML UDC NG SCH ×3 (07:49→20:23)
[2023-04-17] MEDS: PANTOprazole 40 MG in SYRINGE 0 ML IV SCH ×2 (07:49→20:22)
[2023-04-17 08:10] LABS: BUN Creatinine Ratio 23.3 (10-20); Calcium 8.7 mg/dl (8.6-10.3); Potassium 3.5 mmol/L (3.5-5.1)
[2023-04-17] MEDS ORDERED: KETOROLAC 30 MG/ML VIAL IV ONE (10:09)
[2023-04-17] MEDS: HYDROmorphone INJ 1 MG/ML SYRINGE IV PRN ×5 (10:27→23:37)
--- NOTE | 2023-04-17 14:01 | Surgery Progress Note ---
Date of Service April 17, 2023 Assessment & Plan (1) H/O exploratory laparotomy: Plan: Postoperative day #1 Doing well I would like to keep the NG tube as well as MARK drain over the weekend until Thursday We will plan upper GI on Thursday We will start PPN to get her through the weekend Dr. Taveras covering for the weekend Admission and Anticipated Discharge Date Admission Date: April 16, 2023 Subjective Patient seen. All things considered doing well. She is out of bed sitting in a chair and looks well. Physical Exam Physical Exam: Alert. Appears comfortable no distress Abdomen is soft bandages intact. MARK drain with serosanguineous output. No bilious output. Results & Data Vital Signs (Past 12 Hours) Vital Signs Temp Pulse Pulse Resp BP Pulse Ox O2 Del Method 04/17/23 11:30 36.7 C 72 14 105/70 95 Room Air 04/17/23 07:39 37.0 C 84 16 118/76 95 Room Air 04/17/23 03:15 36.9 C 74 16 126/76 96 Room Air PG Care Time/CCT Total # of Minutes Spent Total Time Spent with Patient: Total time spent is greater than 50% in coordination of care (as documented) at patient's floor/unit and/or counseling patient: Coding Level of Care Code 88157 Post Operative Follow-Up Diagnoses H/O exploratory laparotomy Z98.890
[2023-04-18] MEDS: LACTATED RINGER'S 1,000 ML IV SCH ×2 (01:27→10:32)
[2023-04-18] MEDS: ACETAMINOPHEN 1,000 MG/100 ML VIAL IV SCH ×3 (01:27→18:07)
[2023-04-18] MEDS: HYDROmorphone INJ 1 MG/ML SYRINGE IV PRN ×7 (02:24→21:56)
[2023-04-18] MEDS: PIPERACILLIN/TAZOBACTAM 4.5 GM in DEXTROSE 5% 100 ML IV SCH ×3 (05:34→21:16)
[2023-04-18] MEDS ORDERED: TPN/PPN CONSULT PHARMACY PRN (07:00)
[2023-04-18 07:21] LABS: Basophils # (auto) 0.05 K/uL (0-0.2); Basophils % (auto) 0.4 %; Eosinophils # (auto) 0.64 K/uL (0-0.50); Eosinophils % (auto) 4.6 %; Hematocrit (blood only) 32.2 % (37.0-47.0); Hemoglobin 10.7 g/dl (12.0-16.0); Immature Granulocytes # (auto) 0.07 K/uL (0.01-0.20); Immature Granulocytes % (auto) 0.5 %; Lymphocytes # (auto) 2.19 K/uL (1.2-3.4); Lymphocytes % (auto) 15.7 %; Mean Corpuscular Hgb Conc 33.2 g/dL (32.0-36.0); Mean Corpuscular Volume 81.1 fL (80.0-100.0); Mean Platelet Volume 10.5 fL (9.4-12.4); Monocytes # (auto) 0.86 K/uL (0.11-0.59); Monocytes % (auto) 6.2 %; Neutrophils # (auto) 10.15 K/uL (1.40-6.50); Neutrophils % (auto) 72.6 %; Platelet Count 292 K/uL (130-400); RDW Coefficient of Variation 15.7 % (11.5-14.5); RDW Standard Deviation 46.4 fL (36.4-46.3); Red Blood Count 3.97 M/uL (4.20-5.40); White Blood Count 13.96 K/ul (4.8-10.8)
[2023-04-18 07:35] LABS: BUN Creatinine Ratio 22.1 (10-20); Est GFR (African American) 102.2 ml/min; Est GFR (Non-African American) 88.2 ml/min; Magnesium 1.9 mg/dl (1.7-2.4); Potassium 3.5 mmol/L (3.5-5.1)
[2023-04-18] MEDS: PANTOprazole 40 MG in SYRINGE 0 ML IV SCH ×2 (08:52→21:10)
[2023-04-18] MEDS: SUCRALFATE 1 GM/10 ML UDC NG SCH ×3 (08:52→21:11)
[2023-04-18] MEDS: NICOTINE 14 MG/24 HR PATCH TD SCH (08:52)
[2023-04-18] MEDS ORDERED: Nursing to Pharmacy Communication SCH (10:00)
[2023-04-18] MEDS ORDERED: PHARMACY GLYCEMIC MGMT CONSULT PRN (12:00)
[2023-04-18] MEDS ORDERED: GLUCAGON FOR INJ 1 MG VIAL IM PRN (12:30)
[2023-04-18] MEDS ORDERED: DEXTROSE 50% 50 ML SYRINGE IV PRN (12:30)
[2023-04-18] MEDS ORDERED: GLUCOSE 40% GEL 15 GM TUBE PO PRN (12:30)
[2023-04-18] MEDS ORDERED: GLUCOSE 10 TAB/TUBE PO PRN (12:30)
[2023-04-18] MEDS ORDERED: CARBOHYDRATES FOR HYPOGLYCEMIA PO PRN (12:30)
[2023-04-18] MEDS ORDERED: SODIUM PHOSPHATE 15 MMOL in SODIUM CHLORIDE 0.9% 250 ML IV ONE (13:00)
--- NOTE | 2023-04-18 13:28 | Surgery Progress Note ---
Date of Service April 18, 2023 Assessment & Plan (1) Perforated viscus: Plan: 04/18/2023 1:[address] Taveras F/U S/P Exploratory Laparotomy, repair of perforated gastric ulcer and abdominal washout, POD 1 pt is stable, continue treatment SCD, Lovenex 40 mg SC once a day, repeat labs in morning will F/U Admission and Anticipated Discharge Date Admission Date: April 16, 2023 Subjective Patient seen. All things considered doing well. She is out of bed sitting in a chair and looks well. 04/18/2023 1:[address] Taveras F/U S/P Exploratory Laparotomy, repair of perforated gastric ulcer and abdominal washout, POD 1 pt is stable. pt feels better, good control abdominal pain, no fever, NG tube 250ml no bloody. MARK 35 ml, clear color. Physical Exam Constitutional: WD/WN, vitals as above Eyes: PERRL, conjunctivae normal, anicteric sclerae Neck: trachea midline, no thyromegaly Respiratory: normal respiratory effort, lungs clear to auscultation Cardiovascular: RRR, no murmur, no edema Gastrointestinal (Abdomen): soft, tenderness at incision site, no distend, middle line incision intact, no redness, MARK intact Musculoskeletal: no cyanosis or clubbing, extremities motor strength 5/5 Neurologic: patellar DTR's 2+ bilat, sensation intact Psychiatric: A+Ox3, euthymic affect Results & Data Vital Signs (Past 12 Hours) Vital Signs Temp Pulse Pulse Resp BP BP Pulse Ox 04/18/23 08:00 36.9 C 64 16 124/86 98 04/18/23 07:22 36.9 C 67 16 148/84 H 96 O2 Del Method 04/18/23 08:00 Room Air 04/18/23 07:22 Room Air Laboratory Results Abnormal lab results 04/18/23 04/18/23 04/18/23 Range/Units 06:40 06:40 11:49 WBC 13.96 H (4.8-10.8) K/ul RBC 3.97 L (4.20-5.40) M/uL Hgb 10.7 L (12.0-16.0) g/dl Hct 32.2 L (37.0-47.0) % RDW Std Deviation 46.4 H (36.4-46.3) fL RDW Coeff of Elvin 15.7 H (11.5-14.5) % Neut # (Auto) 10.15 H (1.40-6.50) K/uL [place] # (Auto) 0.86 H (0.11-0.59) K/uL Eos # (Auto) 0.64 H (0-0.50) K/uL BUN/Creatinine Ratio 22.1 H (10-20) POC Glucose 66 L* (70-99) mg/dl Phosphorus 2.0 L (2.5-4.9) mg/dl Triglycerides 162 H (0-150) mg/dl 04/18/23 04/18/23 04/18/23 Range/Units 11:52 12:31 12:50 WBC (4.8-10.8) K/ul RBC (4.20-5.40) M/uL Hgb (12.0-16.0) g/dl Hct (37.0-47.0) % RDW Std Deviation (36.4-46.3) fL RDW Coeff of Elvin (11.5-14.5) % Neut # (Auto) (1.40-6.50) K/uL [place] # (Auto) (0.11-0.59) K/uL Eos # (Auto) (0-0.50) K/uL BUN/Creatinine Ratio (10-20) POC Glucose 66 L* 67 L* 134 H (70-99) mg/dl Phosphorus (2.5-4.9) mg/dl Triglycerides (0-150) mg/dl Diagnostic Findings CT abd pelvis IV con only CLINICAL HISTORY: generalized abdominal/back pain TECHNIQUE: Helical axial images of the abdomen and pelvis were obtained and displayed. Automated dose lowering techniques and/or adjustment according to patient size were utilized for this exam. This exam was performed with intravenous contrast. CT DOSE: 641.81 mGy.cm COMPARISON: None available at the time of this dictation. FINDINGS: Lower chest: Bibasilar atelectasis versus scarring is seen. Liver: Unremarkable. No focal lesions are seen. Gallbladder and biliary tree: No calcified gallstones. Normal caliber wall. No intra- or extrahepatic biliary ductal dilation. Pancreas: Unremarkable, no focal lesions. Spleen: Unremarkable. Adrenals: Unremarkable. Kidneys and ureters: Unremarkable. Bladder: Limited evaluation due to underdistention. Bladder wall thickening is seen. Reproductive organs: Patient is status post hysterectomy. Bowel: The appendix is normal. Lymph nodes Retroperitoneal: Unremarkable. Pelvic: Unremarkable. Mesenteric: Unremarkable. Peritoneum: Moderate volume pneumoperitoneum and a small amount of free fluid is seen. Vessels: Unremarkable. Abdominal wall: Unremarkable. Bones: Fixation hardware spans L4-S1. IMPRESSION: 1. Pneumoperitoneum is seen compatible with likely bowel perforation 2. Bladder wall thickening may be reactive, less likely UTI. ACT 112: Negative or not required by law.
--- NOTE | 2023-04-18 15:36 | Pharmacy Report ---
PHA: Parenteral Nutrition Con - Date of Service April 18, 2023 - [facility] Pharmacy was consulted on 04/18 to manage parenteral nutrition orders for this patient. - Objective Height: 5 ft 4 in Weight: 55.9 kg Diet: NPO Intake & Output (24hrs):: Intake & Output 04/16/23 04/17/23 04/18/23 04/19/23 06:59 06:59 06:59 06:59 Intake Total 4755.833 / 4755.833 2660.833 / 2660.833 1100 / 1100 Output Total 1325 / 1325 510 / 510 30 / 30 Balance 3430.833 / 3430.833 2150.833 / 2150.833 1070 / 1070 Weight 55.9 kg 55.9 kg Laboratory Data (Last 24 Hr):: 04/18/23 06:40 Sodium 138 Potassium 3.5 Chloride 107 Carbon Dioxide 25 BUN 17 Creatinine 0.77 Glucose 75 Calcium 9.0 Phosphorus 2.0 L Magnesium 1.9 Triglycerides 162 H Nutrition Assessment:: Please refer to the Notes section of the EMR for the most recent brim rounder note. - Plan For day 1 of PN administration, the following will be ordered: Macronutrients Amino acids 66 grams/day Dextrose 78 grams/day Lipids 50 grams/day Micronutrients Combined electrolytes 20 mL - contains 35 mEq Na, 20 meq K, 4.5 mEq Ca, 5 mEq Mg, 35 mEq Cl, 29.5 mEq acetate per 20 mL Sodium phosphate 15 MMol Sodium chloride 30 mEq Sodium acetate 30 mEq Potassium acetate 20 mEq Multivitamins 10 mL Trace Elements 1 mL Total volume 1633 mL to be infused over 24 hrs will provide 1030 kcal/day Final osmolarity 841 mOsm/L (maximum for PPN is 900 mOsm/L) Labs, as indicated, will be ordered per protocol Pharmacy will continue to follow and adjust parenteral nutrition orders on a daily basis. Thank you for allowing us to participate in the care of this patient.
[2023-04-18] MEDS ORDERED: DEXTROSE 10% 1,000 ML IV PRN (16:00)
[2023-04-18] MEDS ORDERED: [UNRECOGNIZED DRUG - OTHER] IV SCH (16:00)
[2023-04-18] MEDS ORDERED: [UNRECOGNIZED DRUG - REMARK] ONE (16:00)
[2023-04-18] MEDS ORDERED: PERIPHERAL TPN IV SCH (16:00)
[2023-04-18] MEDS ORDERED: CLINOLIPID 20% IV FAT EMULSION 250 ML IV SCH (16:00)
[2023-04-18] MEDS ORDERED: STOP CLINOLIPID SCH (22:00)
[2023-04-19] MEDS: HYDROmorphone INJ 1 MG/ML SYRINGE IV PRN ×7 (01:00→22:00)
[2023-04-19] MEDS: ACETAMINOPHEN 1,000 MG/100 ML VIAL IV SCH ×3 (01:01→18:33)
[2023-04-19] MEDS: PIPERACILLIN/TAZOBACTAM 4.5 GM in DEXTROSE 5% 100 ML IV SCH ×3 (04:02→21:19)
[2023-04-19 07:15] LABS: Basophils # (auto) 0.04 K/uL (0-0.2); Basophils % (auto) 0.4 %; Eosinophils # (auto) 0.59 K/uL (0-0.50); Eosinophils % (auto) 5.7 %; Hemoglobin 10.2 g/dl (12.0-16.0); Immature Granulocytes # (auto) 0.11 K/uL (0.01-0.20); Immature Granulocytes % (auto) 1.1 %; Lymphocytes # (auto) 1.88 K/uL (1.2-3.4); Lymphocytes % (auto) 18.2 %; Mean Corpuscular Hemoglobin 26.9 pg (25.0-34.0); Mean Corpuscular Volume 79.2 fL (80.0-100.0); Mean Platelet Volume 9.8 fL (9.4-12.4); Monocytes # (auto) 0.67 K/uL (0.11-0.59); Monocytes % (auto) 6.5 %; Neutrophils # (auto) 7.03 K/uL (1.40-6.50); Neutrophils % (auto) 68.1 %; Platelet Count 302 K/uL (130-400); RDW Standard Deviation 43.4 fL (36.4-46.3); Red Blood Count 3.79 M/uL (4.20-5.40); White Blood Count 10.32 K/ul (4.8-10.8)
[2023-04-19 07:47] LABS: Albumin Globulin Ratio 1.1 (0.9-2); BUN Creatinine Ratio 16.9 (10-20); Bilirubin,Total 0.3 mg/dl (0.2-1.0); Calcium 8.5 mg/dl (8.6-10.3); Creatinine Clr Calc Pharmacy 86.4 ml/min; Est GFR (African American) 117.5 ml/min; Est GFR (Non-African American) 101.4 ml/min; Globulin 2.8 gm/dl (2.5-4.0); Magnesium 1.9 mg/dl (1.7-2.4); Phosphorus 2.8 mg/dl (2.5-4.9); Potassium 3.1 mmol/L (3.5-5.1); Total Protein 5.8 gm/dl (6.0-8.3)
[2023-04-19] MEDS: SUCRALFATE 1 GM/10 ML UDC NG SCH ×3 (08:54→21:20)
[2023-04-19] MEDS: NICOTINE 14 MG/24 HR PATCH TD SCH (08:54)
[2023-04-19] MEDS: PANTOprazole 40 MG in SYRINGE 0 ML IV SCH ×2 (08:54→21:20)
[2023-04-19] MEDS ORDERED: POTASSIUM CHLORIDE / WTR 10 MEQ/100 ML PLCT IV ONE (10:38)
[2023-04-19] MEDS: ENOXAPARIN INJ 40 MG/0.4 ML SYR SQ SCH (11:14)
--- NOTE | 2023-04-19 12:06 | Surgery Progress Note ---
Date of Service April 19, 2023 Assessment & Plan (1) Perforated viscus: Plan: 04/18/2023 1:[address] Nitin Arevalo/U S/P Exploratory Laparotomy, repair of perforated gastric ulcer and abdominal washout, POD 1 pt is stable, continue treatment SCD, Lovenex 40 mg SC once a day, repeat labs in morning will F/U 04/19/2023 12:[address] Nitin Arevalo/Jeferson S/Liliane Exploratory Laparotomy, repair of perforated gastric ulcer and abdominal washout, POD 2 pt is stable, doing better. continue TPN and antibiotic treatment keep NG tube in per- Dr. Balderrama. SCD, Lovenex 40 mg SC once a day, repeat labs in morning will F/U Admission and Anticipated Discharge Date Admission Date: April 16, 2023 Subjective Patient seen. All things considered doing well. She is out of bed sitting in a chair and looks well. 04/18/2023 1:[address] Nitin Arevalo/Jeferson S/Liliane Exploratory Laparotomy, repair of perforated gastric ulcer and abdominal washout, POD 1 pt is stable. pt feels better, good control abdominal pain, no fever, NG tube 250ml no bloody. MARK 35 ml, clear color. 04/19/2023 12;[address] Nitin Arevalo/Jeferson S/P Exploratory Laparotomy, repair of perforated gastric ulcer and abdominal washout, POD 2 pt feels better, passed gas, good control abdominal pain, no fever, NG tube 150ml no bloody. MARK 90 ml, serosanguineous.pt walked on hallway. Physical Exam Constitutional: WD/WN, vitals as above Eyes: PERRL, conjunctivae normal, anicteric sclerae Neck: trachea midline, no thyromegaly Respiratory: normal respiratory effort, lungs clear to auscultation Cardiovascular: RRR, no murmur, no edema Gastrointestinal (Abdomen): soft, mild tenderness at incision site, no distend, incision intact, no redness, BS +, MARK intact, Musculoskeletal: no cyanosis or clubbing, extremities motor strength 5/5 Neurologic: patellar DTR's 2+ bilat, sensation intact Psychiatric: A+Ox3, euthymic affect Results & Data Vital Signs (Past 12 Hours) Vital Signs Temp Pulse Resp BP BP Pulse Ox O2 Del Method 04/19/23 07:42 37.1 C 71 16 129/82 95 Room Air 04/19/23 01:10 36.9 C 89 20 155/96 H 98 Room Air Laboratory Results Lab Results 04/16/23 04/16/23 04/16/23 Range/Units 07:20 07:20 07:20 WBC 23.93 H (4.8-10.8) K/ul RBC 4.68 (4.20-5.40) M/uL Hgb 12.8 (12.0-16.0) g/dl Hct 38.4 (37.0-47.0) % MCV 82.1 (80.0-100.0) fL MCH 27.4 (25.0-34.0) pg MCHC 33.3 (32.0-36.0) g/dL RDW Std Deviation 44.2 (36.4-46.3) fL RDW Coeff of Elvin 14.8 H (11.5-14.5) % Plt Count 325 (130-400) K/uL MPV 10.1 (9.4-12.4) fL Immature Gran % (Auto) 0.6 % Neut % (Auto) 93.1 % Lymph % (Auto) 2.3 % Travis % (Auto) 3.8 % Eos % (Auto) 0.0 % Baso % (Auto) 0.2 % Neut # (Auto) 22.27 H (1.40-6.50) K/uL Lymph # (Auto) 0.55 L (1.2-3.4) K/uL Travis # (Auto) 0.91 H (0.11-0.59) K/uL Eos # (Auto) 0.01 (0-0.50) K/uL Baso # (Auto) 0.05 (0-0.2) K/uL Immature Gran # (Auto) 0.14 (0.01-0.20) K/uL PT 11.1 (9.0-12.0) Seconds INR 1.0 (0.9-1.1) Sodium 138 (136-145) mmol/L Potassium 3.5 (3.5-5.1) mmol/L Chloride 108 H (98-107) mmol/L Carbon Dioxide 24 (21-32) mmol/L Anion Gap 6 (3-11) BUN 13 (6-23) mg/dl Creatinine 0.76 (0.6-1.2) mg/dl Est Cr Clr Drug Dosing 73.9 ml/min Est GFR ( Amer) 103.8 ml/min Est GFR (Non-Af Amer) 89.6 ml/min BUN/Creatinine Ratio 17.1 (10-20) Glucose 143 H (70-99(Fasting)) mg/dl POC Glucose (70-99) mg/dl Lactate (0.4-2.0) mmol/L Calcium 9.4 (8.6-10.3) mg/dl Phosphorus (2.5-4.9) mg/dl Magnesium (1.7-2.4) mg/dl Total Bilirubin 0.6 (0.2-1.0) mg/dl AST 11 L (13-39) U/L ALT 11 (7-52) U/L Alkaline Phosphatase 85 (34-104) U/L Troponin I High Sens 3.2 (0-14) pg/ml Total Protein 7.1 (6.0-8.3) gm/dl Albumin 4.0 (3.4-5.0) gm/dl Globulin 3.1 (2.5-4.0) gm/dl Albumin/Globulin Ratio 1.3 (0.9-2) Triglycerides (0-150) mg/dl Lipase 101 H (11-82) U/L Urine Color Urine Appearance (Clear) Urine pH (4.5-7.5) Ur Specific Gilbert (1.000-1.030) Urine Protein (Negative) Urine Glucose (UA) (Negative) Urine Ketones (Negative) Urine Blood (Negative) Urine Nitrite (Negative) Urine Bilirubin (Negative) Urine Urobilinogen (Negative) Ur Leukocyte Esterase (Negative) Urine WBC (Auto) (0-5) /hpf Urine RBC (Auto) (0-4) /hpf U Hyaline Cast (Auto) (0-5) /lpf U Epithel Cells (Auto) (0-5) /lpf Urine Bacteria (Auto) (Negative) Ur Renal Epithelial Cell Granular Casts (0) /lpf WBC Casts (0) /lpf SARS-CoV-2, RNA, NAAT (NEGATIVE) 04/16/23 04/16/23 04/16/23 Range/Units 07:50 09:04 09:33 WBC (4.8-10.8) K/ul RBC (4.20-5.40) M/uL Hgb (12.0-16.0) g/dl Hct (37.0-47.0) % MCV (80.0-100.0) fL MCH (25.0-34.0) pg MCHC (32.0-36.0) g/dL RDW Std Deviation (36.4-46.3) fL RDW Coeff of Elvin (11.5-14.5) % Plt Count (130-400) K/uL MPV (9.4-12.4) fL Immature Gran % (Auto) % Neut % (Auto) % Lymph % (Auto) % Travis % (Auto) % Eos % (Auto) % Baso % (Auto) % Neut # (Auto) (1.40-6.50) K/uL Lymph # (Auto) (1.2-3.4) K/uL Travis # (Auto) (0.11-0.59) K/uL Eos # (Auto) (0-0.50) K/uL Baso # (Auto) (0-0.2) K/uL Immature Gran # (Auto) (0.01-0.20) K/uL PT (9.0-12.0) Seconds INR (0.9-1.1) Sodium (136-145) mmol/L Potassium (3.5-5.1) mmol/L Chloride (98-107) mmol/L Carbon Dioxide (21-32) mmol/L Anion Gap (3-11) BUN (6-23) mg/dl Creatinine (0.6-1.2) mg/dl Est Cr Clr Drug Dosing ml/min Est GFR ( Amer) ml/min Est GFR (Non-Af Amer) ml/min BUN/Creatinine Ratio (10-20) Glucose (70-99(Fasting)) mg/dl POC Glucose (70-99) mg/dl Lactate 1.3 (0.4-2.0) mmol/L Calcium (8.6-10.3) mg/dl Phosphorus (2.5-4.9) mg/dl Magnesium (1.7-2.4) mg/dl Total Bilirubin (0.2-1.0) mg/dl AST (13-39) U/L ALT (7-52) U/L Alkaline Phosphatase (34-104) U/L Troponin I High Sens (0-14) pg/ml Total Protein (6.0-8.3) gm/dl Albumin (3.4-5.0) gm/dl Globulin (2.5-4.0) gm/dl Albumin/Globulin Ratio (0.9-2) Triglycerides (0-150) mg/dl Lipase (11-82) U/L Urine Color Dark Yellow Urine Appearance Clear (Clear) Urine pH 5.5 (4.5-7.5) Ur Specific Gilbert 1.035 H (1.000-1.030) Urine Protein 1+ H (Negative) Urine Glucose (UA) Trace H (Negative) Urine Ketones Trace H (Negative) Urine Blood 2+ H (Negative) Urine Nitrite Negative (Negative) Urine Bilirubin 1+ H (Negative) Urine Urobilinogen Negative (Negative) Ur Leukocyte Esterase Negative (Negative) Urine WBC (Auto) 5-10 H (0-5) /hpf Urine RBC (Auto) 0-4 (0-4) /hpf U Hyaline Cast (Auto) 1-5 (0-5) /lpf U Epithel Cells (Auto) >30 H (0-5) /lpf Urine Bacteria (Auto) 1+ H (Negative) Ur Renal Epithelial Cell Not Reportable Granular Casts 5-10 H (0) /lpf WBC Casts 1-5 H (0) /lpf SARS-CoV-2, RNA, NAAT NEGATIVE (NEGATIVE) 04/17/23 04/17/23 04/17/23 Range/Units 07:24 07:24 17:48 WBC 19.35 H (4.8-10.8) K/ul RBC 3.83 L (4.20-5.40) M/uL Hgb 10.4 L (12.0-16.0) g/dl Hct 31.4 L (37.0-47.0) % MCV 82.0 (80.0-100.0) fL MCH 27.2 (25.0-34.0) pg MCHC 33.1 (32.0-36.0) g/dL RDW Std Deviation 45.1 (36.4-46.3) fL RDW Coeff of Elvin 15.1 H (11.5-14.5) % Plt Count 266 (130-400) K/uL MPV 10.0 (9.4-12.4) fL Immature Gran % (Auto) 0.5 % Neut % (Auto) 88.2 % Lymph % (Auto) 5.3 % Travis % (Auto) 5.7 % Eos % (Auto) 0.1 % Baso % (Auto) 0.2 % Neut # (Auto) 17.09 H (1.40-6.50) K/uL Lymph # (Auto) 1.03 L (1.2-3.4) K/uL Travis # (Auto) 1.10 H (0.11-0.59) K/uL Eos # (Auto) 0.01 (0-0.50) K/uL Baso # (Auto) 0.03 (0-0.2) K/uL Immature Gran # (Auto) 0.09 (0.01-0.20) K/uL PT (9.0-12.0) Seconds INR (0.9-1.1) Sodium 140 (136-145) mmol/L Potassium 3.5 (3.5-5.1) mmol/L Chloride 108 H (98-107) mmol/L Carbon Dioxide 27 (21-32) mmol/L Anion Gap 5 (3-11) BUN 17 (6-23) mg/dl Creatinine 0.73 (0.6-1.2) mg/dl Est Cr Clr Drug Dosing 77.0 ml/min Est GFR ( Amer) 109.0 ml/min Est GFR (Non-Af Amer) 94.0 ml/min BUN/Creatinine Ratio 23.3 H (10-20) Glucose 109 H (70-99(Fasting)) mg/dl POC Glucose 94 (70-99) mg/dl Lactate (0.4-2.0) mmol/L Calcium 8.7 (8.6-10.3) mg/dl Phosphorus (2.5-4.9) mg/dl Magnesium (1.7-2.4) mg/dl Total Bilirubin (0.2-1.0) mg/dl AST (13-39) U/L ALT (7-52) U/L Alkaline Phosphatase (34-104) U/L Troponin I High Sens (0-14) pg/ml Total Protein (6.0-8.3) gm/dl Albumin (3.4-5.0) gm/dl Globulin (2.5-4.0) gm/dl Albumin/Globulin Ratio (0.9-2) Triglycerides (0-150) mg/dl Lipase (11-82) U/L Urine Color Urine Appearance (Clear) Urine pH (4.5-7.5) Ur Specific Gilbert (1.000-1.030) Urine Protein (Negative) Urine Glucose (UA) (Negative) Urine Ketones (Negative) Urine Blood (Negative) Urine Nitrite (Negative) Urine Bilirubin (Negative) Urine Urobilinogen (Negative) Ur Leukocyte Esterase (Negative) Urine WBC (Auto) (0-5) /hpf Urine RBC (Auto) (0-4) /hpf U Hyaline Cast (Auto) (0-5) /lpf U Epithel Cells (Auto) (0-5) /lpf Urine Bacteria (Auto) (Negative) Ur Renal Epithelial Cell Granular Casts (0) /lpf WBC Casts (0) /lpf SARS-CoV-2, RNA, NAAT (NEGATIVE) 04/17/23 04/18/23 04/18/23 Range/Units 23:43 05:36 06:40 WBC 13.96 H (4.8-10.8) K/ul RBC 3.97 L (4.20-5.40) M/uL Hgb 10.7 L (12.0-16.0) g/dl Hct 32.2 L (37.0-47.0) % MCV 81.1 (80.0-100.0) fL MCH 27.0 (25.0-34.0) pg MCHC 33.2 (32.0-36.0) g/dL RDW Std Deviation 46.4 H (36.4-46.3) fL RDW Coeff of Elvin 15.7 H (11.5-14.5) % Plt Count 292 (130-400) K/uL MPV 10.5 (9.4-12.4) fL Immature Gran % (Auto) 0.5 % Neut % (Auto) 72.6 % Lymph % (Auto) 15.7 % Travis % (Auto) 6.2 % Eos % (Auto) 4.6 % Baso % (Auto) 0.4 % Neut # (Auto) 10.15 H (1.40-6.50) K/uL Lymph # (Auto) 2.19 (1.2-3.4) K/uL Travis # (Auto) 0.86 H (0.11-0.59) K/uL Eos # (Auto) 0.64 H (0-0.50) K/uL Baso # (Auto) 0.05 (0-0.2) K/uL Immature Gran # (Auto) 0.07 (0.01-0.20) K/uL PT (9.0-12.0) Seconds INR (0.9-1.1) Sodium (136-145) mmol/L Potassium (3.5-5.1) mmol/L Chloride (98-107) mmol/L Carbon Dioxide (21-32) mmol/L Anion Gap (3-11) BUN (6-23) mg/dl Creatinine (0.6-1.2) mg/dl Est Cr Clr Drug Dosing ml/min Est GFR ( Amer) ml/min Est GFR (Non-Af Amer) ml/min BUN/Creatinine Ratio (10-20) Glucose (70-99(Fasting)) mg/dl POC Glucose 84 76 (70-99) mg/dl Lactate (0.4-2.0) mmol/L Calcium (8.6-10.3) mg/dl Phosphorus (2.5-4.9) mg/dl Magnesium (1.7-2.4) mg/dl Total Bilirubin (0.2-1.0) mg/dl AST (13-39) U/L ALT (7-52) U/L Alkaline Phosphatase (34-104) U/L Troponin I High Sens (0-14) pg/ml Total Protein (6.0-8.3) gm/dl Albumin (3.4-5.0) gm/dl Globulin (2.5-4.0) gm/dl Albumin/Globulin Ratio (0.9-2) Triglycerides (0-150) mg/dl Lipase (11-82) U/L Urine Color Urine Appearance (Clear) Urine pH (4.5-7.5) Ur Specific Gilbert (1.000-1.030) Urine Protein (Negative) Urine Glucose (UA) (Negative) Urine Ketones (Negative) Urine Blood (Negative) Urine Nitrite (Negative) Urine Bilirubin (Negative) Urine Urobilinogen (Negative) Ur Leukocyte Esterase (Negative) Urine WBC (Auto) (0-5) /hpf Urine RBC (Auto) (0-4) /hpf U Hyaline Cast (Auto) (0-5) /lpf U Epithel Cells (Auto) (0-5) /lpf Urine Bacteria (Auto) (Negative) Ur Renal Epithelial Cell Granular Casts (0) /lpf WBC Casts (0) /lpf SARS-CoV-2, RNA, NAAT (NEGATIVE) 04/18/23 04/18/23 04/18/23 Range/Units 06:40 11:49 11:52 WBC (4.8-10.8) K/ul RBC (4.20-5.40) M/uL Hgb (12.0-16.0) g/dl Hct (37.0-47.0) % MCV (80.0-100.0) fL MCH (25.0-34.0) pg MCHC (32.0-36.0) g/dL RDW Std Deviation (36.4-46.3) fL RDW Coeff of Elvin (11.5-14.5) % Plt Count (130-400) K/uL MPV (9.4-12.4) fL Immature Gran % (Auto) % Neut % (Auto) % Lymph % (Auto) % Travis % (Auto) % Eos % (Auto) % Baso % (Auto) % Neut # (Auto) (1.40-6.50) K/uL Lymph # (Auto) (1.2-3.4) K/uL Travis # (Auto) (0.11-0.59) K/uL Eos # (Auto) (0-0.50) K/uL Baso # (Auto) (0-0.2) K/uL Immature Gran # (Auto) (0.01-0.20) K/uL PT (9.0-12.0) Seconds INR (0.9-1.1) Sodium 138 (136-145) mmol/L Potassium 3.5 (3.5-5.1) mmol/L Chloride 107 (98-107) mmol/L Carbon Dioxide 25 (21-32) mmol/L Anion Gap 6 (3-11) BUN 17 (6-23) mg/dl Creatinine 0.77 (0.6-1.2) mg/dl Est Cr Clr Drug Dosing 73.0 ml/min Est GFR ( Amer) 102.2 ml/min Est GFR (Non-Af Amer) 88.2 ml/min BUN/Creatinine Ratio 22.1 H (10-20) Glucose 75 (70-99(Fasting)) mg/dl POC Glucose 66 L* 66 L* (70-99) mg/dl Lactate (0.4-2.0) mmol/L Calcium 9.0 (8.6-10.3) mg/dl Phosphorus 2.0 L (2.5-4.9) mg/dl Magnesium 1.9 (1.7-2.4) mg/dl Total Bilirubin (0.2-1.0) mg/dl AST (13-39) U/L ALT (7-52) U/L Alkaline Phosphatase (34-104) U/L Troponin I High Sens (0-14) pg/ml Total Protein (6.0-8.3) gm/dl Albumin (3.4-5.0) gm/dl Globulin (2.5-4.0) gm/dl Albumin/Globulin Ratio (0.9-2) Triglycerides 162 H (0-150) mg/dl Lipase (11-82) U/L Urine Color Urine Appearance (Clear) Urine pH (4.5-7.5) Ur Specific Gilbert (1.000-1.030) Urine Protein (Negative) Urine Glucose (UA) (Negative) Urine Ketones (Negative) Urine Blood (Negative) Urine Nitrite (Negative) Urine Bilirubin (Negative) Urine Urobilinogen (Negative) Ur Leukocyte Esterase (Negative) Urine WBC (Auto) (0-5) /hpf Urine RBC (Auto) (0-4) /hpf U Hyaline Cast (Auto) (0-5) /lpf U Epithel Cells (Auto) (0-5) /lpf Urine Bacteria (Auto) (Negative) Ur Renal Epithelial Cell Granular Casts (0) /lpf WBC Casts (0) /lpf SARS-CoV-2, RNA, NAAT (NEGATIVE) 04/18/23 04/18/23 04/18/23 Range/Units 12:31 12:50 17:50 WBC (4.8-10.8) K/ul RBC (4.20-5.40) M/uL Hgb (12.0-16.0) g/dl Hct (37.0-47.0) % MCV (80.0-100.0) fL MCH (25.0-34.0) pg MCHC (32.0-36.0) g/dL RDW Std Deviation (36.4-46.3) fL RDW Coeff of Elvin (11.5-14.5) % Plt Count (130-400) K/uL MPV (9.4-12.4) fL Immature Gran % (Auto) % Neut % (Auto) % Lymph % (Auto) % Travis % (Auto) % Eos % (Auto) % Baso % (Auto) % Neut # (Auto) (1.40-6.50) K/uL Lymph # (Auto) (1.2-3.4) K/uL Travis # (Auto) (0.11-0.59) K/uL Eos # (Auto) (0-0.50) K/uL Baso # (Auto) (0-0.2) K/uL Immature Gran # (Auto) (0.01-0.20) K/uL PT (9.0-12.0) Seconds INR (0.9-1.1) Sodium (136-145) mmol/L Potassium (3.5-5.1) mmol/L Chloride (98-107) mmol/L Carbon Dioxide (21-32) mmol/L Anion Gap (3-11) BUN (6-23) mg/dl Creatinine (0.6-1.2) mg/dl Est Cr Clr Drug Dosing ml/min Est GFR ( Amer) ml/min Est GFR (Non-Af Amer) ml/min BUN/Creatinine Ratio (10-20) Glucose (70-99(Fasting)) mg/dl POC Glucose 67 L* 134 H 86 (70-99) mg/dl Lactate (0.4-2.0) mmol/L Calcium (8.6-10.3) mg/dl Phosphorus (2.5-4.9) mg/dl Magnesium (1.7-2.4) mg/dl Total Bilirubin (0.2-1.0) mg/dl AST (13-39) U/L ALT (7-52) U/L Alkaline Phosphatase (34-104) U/L Troponin I High Sens (0-14) pg/ml Total Protein (6.0-8.3) gm/dl Albumin (3.4-5.0) gm/dl Globulin (2.5-4.0) gm/dl Albumin/Globulin Ratio (0.9-2) Triglycerides (0-150) mg/dl Lipase (11-82) U/L Urine Color Urine Appearance (Clear) Urine pH (4.5-7.5) Ur Specific Gilbert (1.000-1.030) Urine Protein (Negative) Urine Glucose (UA) (Negative) Urine Ketones (Negative) Urine Blood (Negative) Urine Nitrite (Negative) Urine Bilirubin (Negative) Urine Urobilinogen (Negative) Ur Leukocyte Esterase (Negative) Urine WBC (Auto) (0-5) /hpf Urine RBC (Auto) (0-4) /hpf U Hyaline Cast (Auto) (0-5) /lpf U Epithel Cells (Auto) (0-5) /lpf Urine Bacteria (Auto) (Negative) Ur Renal Epithelial Cell Granular Casts (0) /lpf WBC Casts (0) /lpf SARS-CoV-2, RNA, NAAT (NEGATIVE) 04/19/23 04/19/23 04/19/23 Range/Units 00:17 05:46 06:59 WBC (4.8-10.8) K/ul RBC (4.20-5.40) M/uL Hgb (12.0-16.0) g/dl Hct (37.0-47.0) % MCV (80.0-100.0) fL MCH (25.0-34.0) pg MCHC (32.0-36.0) g/dL RDW Std Deviation (36.4-46.3) fL RDW Coeff of Elvin (11.5-14.5) % Plt Count (130-400) K/uL MPV (9.4-12.4) fL Immature Gran % (Auto) % Neut % (Auto) % Lymph % (Auto) % Travis % (Auto) % Eos % (Auto) % Baso % (Auto) % Neut # (Auto) (1.40-6.50) K/uL Lymph # (Auto) (1.2-3.4) K/uL Travis # (Auto) (0.11-0.59) K/uL Eos # (Auto) (0-0.50) K/uL Baso # (Auto) (0-0.2) K/uL Immature Gran # (Auto) (0.01-0.20) K/uL PT (9.0-12.0) Seconds INR (0.9-1.1) Sodium 140 (136-145) mmol/L Potassium 3.1 L (3.5-5.1) mmol/L Chloride 106 (98-107) mmol/L Carbon Dioxide 27 (21-32) mmol/L Anion Gap 7 (3-11) BUN 11 (6-23) mg/dl Creatinine 0.65 (0.6-1.2) mg/dl Est Cr Clr Drug Dosing 86.4 ml/min Est GFR ( Amer) 117.5 ml/min Est GFR (Non-Af Amer) 101.4 ml/min BUN/Creatinine Ratio 16.9 (10-20) Glucose 100 H (70-99(Fasting)) mg/dl POC Glucose 90 99 (70-99) mg/dl Lactate (0.4-2.0) mmol/L Calcium 8.5 L (8.6-10.3) mg/dl Phosphorus 2.8 (2.5-4.9) mg/dl Magnesium 1.9 (1.7-2.4) mg/dl Total Bilirubin 0.3 (0.2-1.0) mg/dl AST 14 (13-39) U/L ALT 20 (7-52) U/L Alkaline Phosphatase 103 (34-104) U/L Troponin I High Sens (0-14) pg/ml Total Protein 5.8 L (6.0-8.3) gm/dl Albumin 3.0 L (3.4-5.0) gm/dl Globulin 2.8 (2.5-4.0) gm/dl Albumin/Globulin Ratio 1.1 (0.9-2) Triglycerides (0-150) mg/dl Lipase (11-82) U/L Urine Color Urine Appearance (Clear) Urine pH (4.5-7.5) Ur Specific Gilbert (1.000-1.030) Urine Protein (Negative) Urine Glucose (UA) (Negative) Urine Ketones (Negative) Urine Blood (Negative) Urine Nitrite (Negative) Urine Bilirubin (Negative) Urine Urobilinogen (Negative) Ur Leukocyte Esterase (Negative) Urine WBC (Auto) (0-5) /hpf Urine RBC (Auto) (0-4) /hpf U Hyaline Cast (Auto) (0-5) /lpf U Epithel Cells (Auto) (0-5) /lpf Urine Bacteria (Auto) (Negative) Ur Renal Epithelial Cell Granular Casts (0) /lpf WBC Casts (0) /lpf SARS-CoV-2, RNA, NAAT (NEGATIVE) 04/19/23 04/19/23 Range/Units 06:59 11:56 WBC 10.32 (4.8-10.8) K/ul RBC 3.79 L (4.20-5.40) M/uL Hgb 10.2 L (12.0-16.0) g/dl Hct 30.0 L (37.0-47.0) % MCV 79.2 L (80.0-100.0) fL MCH 26.9 (25.0-34.0) pg MCHC 34.0 (32.0-36.0) g/dL RDW Std Deviation 43.4 (36.4-46.3) fL RDW Coeff of Elvin 15.0 H (11.5-14.5) % Plt Count 302 (130-400) K/uL MPV 9.8 (9.4-12.4) fL Immature Gran % (Auto) 1.1 % Neut % (Auto) 68.1 % Lymph % (Auto) 18.2 % Travis % (Auto) 6.5 % Eos % (Auto) 5.7 % Baso % (Auto) 0.4 % Neut # (Auto) 7.03 H (1.40-6.50) K/uL Lymph # (Auto) 1.88 (1.2-3.4) K/uL Travis # (Auto) 0.67 H (0.11-0.59) K/uL Eos # (Auto) 0.59 H (0-0.50) K/uL Baso # (Auto) 0.04 (0-0.2) K/uL Immature Gran # (Auto) 0.11 (0.01-0.20) K/uL PT (9.0-12.0) Seconds INR (0.9-1.1) Sodium (136-145) mmol/L Potassium (3.5-5.1) mmol/L Chloride (98-107) mmol/L Carbon Dioxide (21-32) mmol/L Anion Gap (3-11) BUN (6-23) mg/dl Creatinine (0.6-1.2) mg/dl Est Cr Clr Drug Dosing ml/min Est GFR ( Amer) ml/min Est GFR (Non-Af Amer) ml/min BUN/Creatinine Ratio (10-20) Glucose (70-99(Fasting)) mg/dl POC Glucose 109 H (70-99) mg/dl Lactate (0.4-2.0) mmol/L Calcium (8.6-10.3) mg/dl Phosphorus (2.5-4.9) mg/dl Magnesium (1.7-2.4) mg/dl Total Bilirubin (0.2-1.0) mg/dl AST (13-39) U/L ALT (7-52) U/L Alkaline Phosphatase (34-104) U/L Troponin I High Sens (0-14) pg/ml Total Protein (6.0-8.3) gm/dl Albumin (3.4-5.0) gm/dl Globulin (2.5-4.0) gm/dl Albumin/Globulin Ratio (0.9-2) Triglycerides (0-150) mg/dl Lipase (11-82) U/L Urine Color Urine Appearance (Clear) Urine pH (4.5-7.5) Ur Specific Gilbert (1.000-1.030) Urine Protein (Negative) Urine Glucose (UA) (Negative) Urine Ketones (Negative) Urine Blood (Negative) Urine Nitrite (Negative) Urine Bilirubin (Negative) Urine Urobilinogen (Negative) Ur Leukocyte Esterase (Negative) Urine WBC (Auto) (0-5) /hpf Urine RBC (Auto) (0-4) /hpf U Hyaline Cast (Auto) (0-5) /lpf U Epithel Cells (Auto) (0-5) /lpf Urine Bacteria (Auto) (Negative) Ur Renal Epithelial Cell Granular Casts (0) /lpf WBC Casts (0) /lpf SARS-CoV-2, RNA, NAAT (NEGATIVE)
[2023-04-19] MEDS ORDERED: POTASSIUM CHLORIDE / WTR 10 MEQ/100 ML PLCT IV SCH (12:15)
[2023-04-19] MEDS: POTASSIUM CHLORIDE / WTR 10 MEQ/100 ML PLCT IV SCH ×2 (13:00→15:09)
--- NOTE | 2023-04-19 14:43 | Pharmacy Report ---
Pharmacy Glycemic Sign Off Nt - Date of Service April 19, 2023 - Assessment & Plan ASSESSMENT: * Pharmacy was consulted by Dr Taveras on 04/18 for glycemic control and to write orders per [facility] inpatient glycemic control protocol. * Patient has not received any insulin and BSGs stable. Added on hypoglycemia protocol as BSGs low at time of consult. No insulin orders necessary at this time. Of note, patient started on PPN 04/18. PLAN FOR INPATIENT GLYCEMIC CONTROL: No insulin orders necessary at this time * Pharmacy is signing off of glycemic consult and will no longer be making adjustments to inpatient regimen. Please feel free to re-consult if needed. Thank you.
[2023-04-19] MEDS ORDERED: [UNRECOGNIZED DRUG - OTHER] IV SCH (16:00)
[2023-04-19] MEDS ORDERED: CLINOLIPID 20% IV FAT EMULSION 250 ML IV SCH (16:00)
[2023-04-19] MEDS ORDERED: PERIPHERAL TPN IV SCH (16:00)
[2023-04-19] MEDS ORDERED: Nursing to Pharmacy Communication SCH (18:15)
[2023-04-19] MEDS ORDERED: MoRPHine SULFATE 10 MG/ML CARP/VIAL IV STA (21:04)
[2023-04-19] MEDS: STOP CLINOLIPID SCH (23:18)
[2023-04-20] MEDS: HYDROmorphone INJ 1 MG/ML SYRINGE IV PRN ×7 (01:01→20:27)
[2023-04-20] MEDS: ACETAMINOPHEN 1,000 MG/100 ML VIAL IV SCH ×3 (02:19→20:25)
[2023-04-20] MEDS: PIPERACILLIN/TAZOBACTAM 4.5 GM in DEXTROSE 5% 100 ML IV SCH ×3 (04:06→20:36)
[2023-04-20 06:19] LABS: Basophils # (auto) 0.06 K/uL (0-0.2); Basophils % (auto) 0.6 %; Eosinophils # (auto) 0.53 K/uL (0-0.50); Eosinophils % (auto) 5.5 %; Hematocrit (blood only) 31.8 % (37.0-47.0); Hemoglobin 10.8 g/dl (12.0-16.0); Immature Granulocytes # (auto) 0.13 K/uL (0.01-0.20); Immature Granulocytes % (auto) 1.4 %; Lymphocytes # (auto) 1.93 K/uL (1.2-3.4); Lymphocytes % (auto) 20.1 %; Mean Corpuscular Hemoglobin 27.2 pg (25.0-34.0); Mean Corpuscular Volume 80.1 fL (80.0-100.0); Mean Platelet Volume 9.8 fL (9.4-12.4); Monocytes # (auto) 0.88 K/uL (0.11-0.59); Monocytes % (auto) 9.1 %; Neutrophils # (auto) 6.09 K/uL (1.40-6.50); Neutrophils % (auto) 63.3 %; Platelet Count 318 K/uL (130-400); RDW Coefficient of Variation 14.6 % (11.5-14.5); RDW Standard Deviation 42.6 fL (36.4-46.3); Red Blood Count 3.97 M/uL (4.20-5.40); White Blood Count 9.62 K/ul (4.8-10.8)
[2023-04-20 06:37] LABS: BUN Creatinine Ratio 15.8 (10-20); Calcium 8.7 mg/dl (8.6-10.3); Creatinine Clr Calc Pharmacy 98.6 ml/min; Est GFR (African American) 122.7 ml/min; Est GFR (Non-African American) 105.8 ml/min; Phosphorus 3.3 mg/dl (2.5-4.9); Potassium 3.3 mmol/L (3.5-5.1)
[2023-04-20] MEDS: PANTOprazole 40 MG in SYRINGE 0 ML IV SCH ×2 (08:00→20:36)
[2023-04-20] MEDS: ENOXAPARIN INJ 40 MG/0.4 ML SYR SQ SCH (08:01)
[2023-04-20] MEDS: NICOTINE 14 MG/24 HR PATCH TD SCH (08:01)
[2023-04-20] MEDS: SUCRALFATE 1 GM/10 ML UDC NG SCH ×3 (08:01→20:32)
[2023-04-20 10:03] LABS: Albumin Globulin Ratio 0.9 (0.9-2); Albumin Level 3.1 gm/dl (3.4-5.0); Bilirubin,Total 0.4 mg/dl (0.2-1.0); Globulin 3.3 gm/dl (2.5-4.0); Total Protein 6.4 gm/dl (6.0-8.3)
--- NOTE | 2023-04-20 12:38 | Surgery Progress Note ---
Date of Service April 20, 2023 Assessment & Plan (1) Perforated viscus: Plan: 04/18/2023 1:[address] Nitin Arevalo/Jeferson S/P Exploratory Laparotomy, repair of perforated gastric ulcer and abdominal washout, POD 1 pt is stable, continue treatment SCD, Lovenex 40 mg SC once a day, repeat labs in morning will F/U 04/19/2023 12:[address] Nitin Arevalo/Jeferson S/Liliane Exploratory Laparotomy, repair of perforated gastric ulcer and abdominal washout, POD 2 pt is stable, doing better. continue TPN and antibiotic treatment keep NG tube in per- Dr. Balderrama. SCD, Lovenex 40 mg SC once a day, repeat labs in morning will F/U 04/20/2023 12:[address] Nitin Arevalo/Jeferson S/Liliane Exploratory Laparotomy, repair of perforated gastric ulcer and abdominal washout, POD 3 pt is stable, doing better. continue TPN and antibiotic treatment keep NG tube in per- Dr. Balderrama. SCD, Lovenex 40 mg SC once a day, repeat labs in morning will F/U Admission and Anticipated Discharge Date Admission Date: April 16, 2023 Subjective Patient seen. All things considered doing well. She is out of bed sitting in a chair and looks well. 04/18/2023 1:[address] Nitin Arevalo/Jeferson S/Liliane Exploratory Laparotomy, repair of perforated gastric ulcer and abdominal washout, POD 1 pt is stable. pt feels better, good control abdominal pain, no fever, NG tube 250ml no bloody. MARK 35 ml, clear color. 04/19/2023 12;[address] Nitin Arevalo/Jeferson S/Liliane Exploratory Laparotomy, repair of perforated gastric ulcer and abdominal washout, POD 2 pt feels better, passed gas, good control abdominal pain, no fever, NG tube 150ml no bloody. MARK 90 ml, [email or web address].pt walked on hallway. 04/20/2023 12;[address] Nitin Arevalo/Jeferson S/P Exploratory Laparotomy, repair of perforated gastric ulcer and abdominal washout, POD 3 pt feels better, passed gas, good control abdominal pain, no fever, NG tube 800ml no bloody. MARK 50 ml, serosanguineous.pt walked on hallway. Physical Exam Constitutional: WD/WN, vitals as above Eyes: PERRL, conjunctivae normal, anicteric sclerae Neck: trachea midline, no thyromegaly Respiratory: normal respiratory effort, lungs clear to auscultation Cardiovascular: RRR, no murmur, no edema Gastrointestinal (Abdomen): soft, mild tenderness at incision site, incision intact, no redness, MARK intact. Musculoskeletal: no cyanosis or clubbing, extremities motor strength 5/5 Neurologic: patellar DTR's 2+ bilat, sensation intact Psychiatric: A+Ox3, euthymic affect Results & Data Vital Signs (Past 12 Hours) Vital Signs Temp Pulse Resp BP Pulse Ox O2 Del Method 04/20/23 07:37 36.8 C 83 16 130/86 95 Room Air Laboratory Results Abnormal lab results 04/19/23 04/19/23 04/20/23 Range/Units 18:54 23:41 06:02 RBC 3.97 L (4.20-5.40) M/uL Hgb 10.8 L (12.0-16.0) g/dl Hct 31.8 L (37.0-47.0) % RDW Coeff of Elvin 14.6 H (11.5-14.5) % [place] # (Auto) 0.88 H (0.11-0.59) K/uL Eos # (Auto) 0.53 H (0-0.50) K/uL Potassium (3.5-5.1) mmol/L Creatinine (0.6-1.2) mg/dl POC Glucose 105 H 110 H (70-99) mg/dl Alkaline Phosphatase (34-104) U/L Albumin (3.4-5.0) gm/dl 04/20/23 Range/Units 06:02 RBC (4.20-5.40) M/uL Hgb (12.0-16.0) g/dl Hct (37.0-47.0) % RDW Coeff of Elvin (11.5-14.5) % [place] # (Auto) (0.11-0.59) K/uL Eos # (Auto) (0-0.50) K/uL Potassium 3.3 L (3.5-5.1) mmol/L Creatinine 0.57 L (0.6-1.2) mg/dl POC Glucose (70-99) mg/dl Alkaline Phosphatase 353 H D (34-104) U/L Albumin 3.1 L (3.4-5.0) gm/dl
[2023-04-20] MEDS ORDERED: PERIPHERAL TPN IV SCH (16:00)
[2023-04-20] MEDS ORDERED: [UNRECOGNIZED DRUG - OTHER] IV SCH (16:00)
[2023-04-20] MEDS ORDERED: CLINOLIPID 20% IV FAT EMULSION 250 ML IV SCH (16:00)
[2023-04-20] MEDS: STOP CLINOLIPID SCH (22:00)
[2023-04-21] MEDS: HYDROmorphone INJ 1 MG/ML SYRINGE IV PRN ×7 (00:11→22:08)
[2023-04-21] MEDS: ACETAMINOPHEN 1,000 MG/100 ML VIAL IV SCH ×3 (04:29→20:49)
[2023-04-21] MEDS: PIPERACILLIN/TAZOBACTAM 4.5 GM in DEXTROSE 5% 100 ML IV SCH ×3 (04:29→20:55)
[2023-04-21] MEDS: NICOTINE 14 MG/24 HR PATCH TD SCH (07:43)
[2023-04-21] MEDS: PANTOprazole 40 MG in SYRINGE 0 ML IV SCH ×2 (07:44→20:52)
[2023-04-21] MEDS: SUCRALFATE 1 GM/10 ML UDC NG SCH ×3 (07:44→20:54)
[2023-04-21] MEDS: ENOXAPARIN INJ 40 MG/0.4 ML SYR SQ SCH (07:44)
[2023-04-21 07:46] LABS: BUN Creatinine Ratio 21.5 (10-20); Creatinine Clr Calc Pharmacy 86.4 ml/min; Est GFR (African American) 117.5 ml/min; Est GFR (Non-African American) 101.4 ml/min; Phosphorus 3.7 mg/dl (2.5-4.9); Potassium 3.4 mmol/L (3.5-5.1)
--- NOTE | 2023-04-21 08:19 | Surgery Progress Note ---
Date of Service April 21, 2023 Assessment & Plan (1) H/O exploratory laparotomy: Plan: Doing well. We will obtain an upper GI today. If no evidence of ongoing leak we will pull NG tube and initiate clear liquids. Admission and Anticipated Discharge Date Admission Date: April 16, 2023 Subjective Patient seen. Frustrated with NG tube otherwise doing okay. Feels well enough to go home Physical Exam Physical Exam: Alert. No acute distress Midline incision is healing nicely with no drainage or sign of infection MARK drain with idania fluid Results & Data Vital Signs (Past 12 Hours) Vital Signs Temp Pulse Resp BP Pulse Ox O2 Del Method 04/21/23 07:37 36.4 C L 84 16 125/81 95 Room Air 04/20/23 21:28 36.7 C 98 H 18 135/92 94 Room Air PG Care Time/CCT Total # of Minutes Spent Total Time Spent with Patient: Total time spent is greater than 50% in coordination of care (as documented) at patient's floor/unit and/or counseling patient: Coding Level of Care Code 35456 Post Operative Follow-Up Diagnoses H/O exploratory laparotomy Z98.890
--- NOTE | 2023-04-21 09:57 | Fluoroscopy Report ---
[place] upper GI series wo air CLINICAL HISTORY: s/p gastric perforation repair. evaluate ulcer COMPARISON STUDY: Abdomen and pelvis CT 04/16/2023. FLUOROSCOPY TIME: 1 minute and 18 seconds. FLUOROSCOPY IMAGES: 11 Ka,r: 15.5 mGy FINDINGS: Estate Manager images demonstrate a nasogastric tube within the stomach and a surgical drain within the left upper quadrant. Skin porfirio are noted status post repair of gastric perforation. Cervical a nd lumbar spinal fusion hardware is noted. The patient drank 150 cc of water-soluble contrast without difficulty. Best seen on images 8 and 9 there is trace extraluminal contrast adjacent to the superio r aspect of the distal gastric antrum. This is concerning for a trace residual leak/perforation. IMPRESSION: Trace extraluminal contrast adjacent to the superior aspect of the distal gastric antrum. This likely represents a tiny residual leak/perforation. ACT 112: Negative or not required by law. Electronically signed by: Seferino Fernandez M.D. 04/21/2023 9:54 AM
[2023-04-21] MEDS ORDERED: [UNRECOGNIZED DRUG - OTHER] IV SCH (16:00)
[2023-04-21] MEDS ORDERED: PERIPHERAL TPN IV SCH (16:00)
[2023-04-21] MEDS ORDERED: CLINOLIPID 20% IV FAT EMULSION 250 ML IV SCH (16:00)
[2023-04-21] MEDS: STOP CLINOLIPID SCH (22:49)
[2023-04-22] MEDS: HYDROmorphone INJ 1 MG/ML SYRINGE IV PRN ×7 (01:27→21:05)
[2023-04-22] MEDS: ACETAMINOPHEN 1,000 MG/100 ML VIAL IV SCH ×2 (03:41→11:31)
[2023-04-22] MEDS: PIPERACILLIN/TAZOBACTAM 4.5 GM in DEXTROSE 5% 100 ML IV SCH ×3 (04:04→20:55)
[2023-04-22 06:41] LABS: Calcium 9.2 mg/dl (8.6-10.3); Magnesium 2.1 mg/dl (1.7-2.4)
[2023-04-22 06:47] LABS: BUN Creatinine Ratio 25.4 (10-20); Creatinine Clr Calc Pharmacy 79.1 ml/min; Est GFR (African American) 112.7 ml/min; Est GFR (Non-African American) 97.2 ml/min; Phosphorus 3.9 mg/dl (2.5-4.9)
--- NOTE | 2023-04-22 08:55 | CT Scan Report ---
CT abdomen w oral con only CLINICAL HISTORY: r/o gastric ulcer leak TECHNIQUE: Helical axial images of the abdomen were obtained. Automated dose lowering techniques and/ or adjustment according to patient size were utilized for this exam. This exam was performed with in travenous contrast. CT DOSE: 257.58 mGy.cm Comparison: Comparison is made to CT abdomen pelvis 04/16/2020 FINDINGS: Lower chest: Bibasilar atelectasis versus scarring is seen. Liver: Unremarkable. No focal lesions are seen. Gallbladder and biliary tree: No calcified gallstones. Normal caliber wall. No intra- or extrahepatic biliary ductal dilation. Pancreas: Unremarkable, no focal lesions. Spleen: Unremarkable. Adrenals: Unremarkable. Kidneys and ureters: Unremarkable. Bowel: Enteric tube is in satisfactory position. The appendix is normal. Stomach and loops of bowel a re unremarkable. Lymph nodes Retroperitoneal: Unremarkable. Mesenteric: Unremarkable. Peritoneum: A surgical drain is noted in the left upper quadrant. Pneumoperitoneum is significantly d ecreased with trace residual pneumoperitoneum near the incision site.. Vessels: Atherosclerotic calcifications are seen. Abdominal wall: Midline incision is seen. Bones: Degenerative changes in the visualized spine. Fixation hardware is seen in the lumbar spine. IMPRESSION: Expected postsurgical appearance. There is trace pneumoperitoneum near the incision site but no large volume pneumoperitoneum is seen. No abnormal fluid collections. ACT 112: Negative or not required by law. Electronically signed by: Meng Quiñones M.D. 04/22/2023 8:54 AM
[2023-04-22] MEDS: NICOTINE 14 MG/24 HR PATCH TD SCH (09:52)
[2023-04-22] MEDS: ENOXAPARIN INJ 40 MG/0.4 ML SYR SQ SCH (09:54)
[2023-04-22] MEDS: PANTOprazole 40 MG in SYRINGE 0 ML IV SCH ×2 (09:54→19:57)
[2023-04-22] MEDS: SUCRALFATE 1 GM/10 ML UDC NG SCH (09:54)
--- NOTE | 2023-04-22 12:19 | Surgery Progress Note ---
Date of Service April 22, 2023 Assessment & Plan (1) H/O exploratory laparotomy: Plan: CT scan today with oral contrast shows no extravasation of contrast. Clinically she looks great. I am going to remove her NG tube and start clear liquid diet. I do want to keep the MARK drain. We will stop peripheral hyperalimentation. Overall pleased with her progress Admission and Anticipated Discharge Date Admission Date: April 16, 2023 Subjective Patient seen. She is status post open repair of perforated gastric ulcer. She is doing well. No nausea no abdominal pain. Physical Exam Constitutional: Alert and oriented no acute distress Abdomen is soft. Expected incisional tenderness. The incision looks good. MARK drain with scant amount of serous output. Results & Data Vital Signs (Past 12 Hours) Vital Signs Temp Pulse Resp BP Pulse Ox O2 Del Method 04/22/23 07:39 36.4 C L 80 13 110/70 97 Room Air PG Care Time/CCT Total # of Minutes Spent Total Time Spent with Patient: Total time spent is greater than 50% in coordination of care (as documented) at patient's floor/unit and/or counseling patient: Coding Level of Care Code 50131 Post Operative Follow-Up Diagnoses H/O exploratory laparotomy Z98.890
[2023-04-22] MEDS: SUCRALFATE 1 GM/10 ML UDC PO SCH ×3 (13:07→19:58)
[2023-04-22] MEDS: ACETAMINOPHEN 325 MG TAB PO PRN (23:05)
[2023-04-23] MEDS: HYDROmorphone INJ 1 MG/ML SYRINGE IV PRN ×5 (00:04→13:31)
[2023-04-23] MEDS: PIPERACILLIN/TAZOBACTAM 4.5 GM in DEXTROSE 5% 100 ML IV SCH ×2 (03:53→12:41)
[2023-04-23] MEDS: ACETAMINOPHEN 325 MG TAB PO PRN (06:27)
[2023-04-23 06:55] LABS: Basophils # (auto) 0.09 K/uL (0-0.2); Basophils % (auto) 0.7 %; Eosinophils # (auto) 0.78 K/uL (0-0.50); Eosinophils % (auto) 6.1 %; Hematocrit (blood only) 35.4 % (37.0-47.0); Hemoglobin 11.5 g/dl (12.0-16.0); Immature Granulocytes # (auto) 0.33 K/uL (0.01-0.20); Immature Granulocytes % (auto) 2.6 %; Lymphocytes # (auto) 2.75 K/uL (1.2-3.4); Lymphocytes % (auto) 21.6 %; Mean Corpuscular Hemoglobin 26.8 pg (25.0-34.0); Mean Corpuscular Hgb Conc 32.5 g/dL (32.0-36.0); Mean Corpuscular Volume 82.5 fL (80.0-100.0); Mean Platelet Volume 9.7 fL (9.4-12.4); Monocytes % (auto) 9.4 %; Neutrophils # (auto) 7.59 K/uL (1.40-6.50); Neutrophils % (auto) 59.6 %; Platelet Count 561 K/uL (130-400); RDW Coefficient of Variation 14.8 % (11.5-14.5); RDW Standard Deviation 44.3 fL (36.4-46.3); Red Blood Count 4.29 M/uL (4.20-5.40); White Blood Count 12.74 K/ul (4.8-10.8)
[2023-04-23 07:14] LABS: Calcium 9.7 mg/dl (8.6-10.3); Creatinine Clr Calc Pharmacy 70.2 ml/min; Est GFR (African American) 97.6 ml/min; Est GFR (Non-African American) 84.2 ml/min; Phosphorus 3.8 mg/dl (2.5-4.9); Potassium 3.8 mmol/L (3.5-5.1)
--- NOTE | 2023-04-23 07:50 | Surgery Progress Note ---
Date of Service April 23, 2023 Assessment & Plan (1) H/O exploratory laparotomy: Plan: will advance to full liquids pt insisting on going home. will not stay. I would prefer one more day to recheck cbc. will go home on PPI and carafate must stop smoking. f/u in1 week. return/call if any n/v, fevers, pain, etc.... Admission and Anticipated Discharge Date Admission Date: April 16, 2023 Subjective pt seen. feels "great". "starving". +bm last night. adamantly wants to go home Physical Exam Physical Exam: alert. nad abd: soft. nt. nd. wound looks great. MARK scant serous. no erythema/sign of infection Results & Data Vital Signs (Past 12 Hours) Vital Signs Temp Pulse Resp BP Pulse Ox O2 Del Method 04/22/23 21:14 36.7 C 97 H 18 120/68 96 Room Air PG Care Time/CCT Total # of Minutes Spent Total Time Spent with Patient: Total time spent is greater than 50% in coordination of care (as documented) at patient's floor/unit and/or counseling patient: Coding Level of Care Code 80082 Post Operative Follow-Up Diagnoses H/O exploratory laparotomy Z98.890
[2023-04-23] MEDS: PANTOprazole 40 MG in SYRINGE 0 ML IV SCH (07:53)
[2023-04-23] MEDS: SUCRALFATE 1 GM/10 ML UDC PO SCH ×2 (07:53→12:27)
[2023-04-23] MEDS: NICOTINE 14 MG/24 HR PATCH TD SCH (08:00)
[2023-04-23] MEDS: ENOXAPARIN INJ 40 MG/0.4 ML SYR SQ SCH (09:30)
== END 2023-04-23 15:55 | disposition home or self-care (01) | DRG 326 ==
LOC: ED 07:07 → OR 11:27 → 3W 14:55